=== PATIENT | male | born 1990 | race Caucasian/White ===

== ENCOUNTER 2017-01-19 05:54 | Emergency (ER) | payer OTHER ==
[2017-01-19] MEDS ORDERED: Sodium Chloride 0.9% 1,000 ML IV ONE (05:58)
[2017-01-19] MEDS ORDERED: Ondansetron 4 MG/2 ML SDV IVPUSH ONE (05:58)
--- NOTE | 2017-01-19 06:11 | EDM.PDOC ---
ED HPI GENERAL MEDICAL PROBLEM - General Chief Complaint: General Stated Complaint: VOMITING Time Seen by Provider: 01/19/17 06:15 - History of Present Illness INITIAL COMMENTS - FREE TEXT/NARRATIVE: HISTORY AND PHYSICAL: History of present illness: Patient Brittani phillips is a concern of intermittent nausea and vomiting since he states he had similar episodes over the last several months with some mild associated abdominal cramping denies diarrhea denies fever chills or other complaints Review of systems: As per history of present illness and below otherwise all systems reviewed and negative. Past medical history: As per history of present illness and as reviewed below otherwise noncontributory. Surgical history: As per history of present illness and as reviewed below otherwise noncontributory. Social history: No reported history of drug or alcohol abuse. Family history: As per history of present illness and as reviewed below otherwise noncontributory. Physical exam: HEENT: Atraumatic, normocephalic, pupils reactive, negative for conjunctival pallor or scleral icterus, mucous membranes slightly dry throat clear, neck supple, nontender, trachea midline. Lungs: Clear to auscultation, breath sounds equal bilaterally, chest nontender. Heart: S1S2, regular, negative for clicks, rubs, or JVD. Abdomen: Soft, nondistended, nontender. Negative for masses or hepatosplenomegaly. Negative for costovertebral tenderness. Pelvis: Stable nontender. Genitourinary: Deferred. Rectal: Deferred. Extremities: Atraumatic, negative for cords or calf pain. Neurovascular unremarkable. Neuro: Awake, alert, oriented. Cranial nerves II through XII unremarkable. Cerebellum unremarkable. Motor and sensory unremarkable throughout. Exam nonfocal. Diagnostics: CBC CMP lipase UA Therapeutics: Normal saline 1 L bolus Zofran 4 mg IV Impression: #1 vomiting with mild dehydration #2 intermittent abdominal pain Definitive disposition and diagnosis as appropriate pending reevaluation and review of above. - Related Data Allergies Allergy/AdvReac Type Severity Reaction Status Date / Time No Known Allergies Allergy Verified 01/19/17 05:57 Home Meds: Home Meds . [No Known Home Meds] 09/12/14 [History] Past Medical History - Past Health History Medical/Surgical History: Denies Medical/Surgical History HEENT History: Reports: None Cardiovascular History: Reports: None Respiratory History: Reports: None Genitourinary History: Reports: None Musculoskeletal History: Reports: None Neurological History: Reports: None Psychiatric History: Reports: None Endocrine/Metabolic History: Reports: None Hematologic History: Reports: None Immunologic History: Reports: None Oncologic (Cancer) History: Reports: None Dermatologic History: Reports: None - Infectious Disease History Infectious Disease History: Reports: Chicken pox - Past Surgical History Head Surgeries/Procedures: Reports: None GI Surgical History: Reports: Appendectomy, Hernia, inguinal, Lysis of adhesions Social & Family History - Family History Family Medical History: Noncontributory - Tobacco Use Smoking Status *Q: Never Smoker Years of Tobacco use: 1 Used Tobacco, but Quit: Yes Month Tobacco Last Used: May Second Hand Smoke Exposure: No - Caffeine Use Caffeine Use: Reports: Coffee Caffeine Use Comment: 1 daily - Alcohol Use Days Per Week of Alcohol Use: 2 Number of Drinks Per Day: 2 Total Drinks Per Week: 4 - Recreational Drug Use Recreational Drug Use: No Drug Use in Last 12 Months: No ED ROS GENERAL - Review of Systems Review Of Systems: ROS reveals no pertinent complaints other than HPI. ED EXAM, GENERAL - Physical Exam Exam: See Below (See dictation) Course - Vital Signs Last Recorded V/S: Last Vital Signs Temp 36.5 C 01/19/17 05:59 Pulse 115 H 01/19/17 05:59 Resp 16 01/19/17 05:59 BP 170/110 H 01/19/17 05:59 Pulse Ox 99 01/19/17 05:59 - Orders/Labs/Meds Orders: Active Orders 24 hr Category Date Time Status CMP [COMPREHENSIVE METABOLIC PN,CMP] [CHEM] Stat Lab 01/19/17 06:00 Received LIPASE [CHEM] Stat Lab 01/19/17 06:00 Received URINALYSIS W/MICROSCOPIC [UA W/MICROSCOPIC] [URIN] Stat Lab 01/19/17 05:58 Uncollected Sodium Chloride 0.9% [Normal Saline] 1,000 ml Med 01/19/17 05:58 Active IV .Bolus Medication Orders Sodium Chloride (Normal Saline) 1,000 mls @ 999 mls/hr IV .Bolus ONE Stop: 01/19/17 06:58 Last Admin: 01/19/17 06:05 Dose: 999 mls/hr Labs: Laboratory Tests 01/19/17 Range/Units 06:00 WBC 10.76 (4.0-11.0) K/uL RBC 5.84 (4.50-5.90) M/uL Hgb 18.2 H (13.0-17.0) g/dL Hct 51.1 H (38.0-50.0) % MCV 87.5 (80.0-98.0) fL MCH 31.2 (27.0-32.0) pg MCHC 35.6 (31.0-37.0) g/dL RDW Std Deviation 39.1 (28.0-62.0) fl RDW Coeff of Sindy 12 (11.0-15.0) % Plt Count 245 (150-400) K/uL MPV 9.40 (7.40-12.00) fL Neut % (Auto) 65.2 (48.0-80.0) % Lymph % (Auto) 25.5 (16.0-40.0) % [place] % (Auto) 9.0 (0.0-15.0) % Eos % (Auto) 0.1 (0.0-7.0) % Baso % (Auto) 0.2 (0.0-1.5) % Neut # 7.0 H (1.4-5.7) K/uL Lymph # 2.7 H (0.6-2.4) K/uL [place] # 1.0 H (0.0-0.8) K/uL Eos # 0.0 (0.0-0.7) K/uL Baso # 0.0 (0.0-0.1) K/uL Nucleated RBC % 0.0 /100WBC Nucleated RBCs # 0 K/uL Meds: Medications Generic Name Dose Route Start Last Admin Trade Name Freq PRN Reason Stop Dose Admin Sodium Chloride 1,000 mls @ 999 mls/hr 01/19/17 05:58 01/19/17 06:05 Normal Saline IV 01/19/17 06:58 999 mls/hr .Bolus ONE Administration Discontinued Medications Generic Name Dose Route Start Last Admin Trade Name Freq PRN Reason Stop Dose Admin Ondansetron HCl 4 mg 01/19/17 05:58 01/19/17 06:07 Zofran IVPUSH 01/19/17 05:59 4 mg ONETIME ONE Administration Departure - Departure Time of Disposition: 06:15 Disposition: Home, Self-Care 01 Condition: good Clinical Impression: Abdominal pain Vomiting Qualifiers: Vomiting type: unspecified Vomiting Intractability: non-intractable Nausea presence: with nausea Qualified Code(s): R11.2 - Nausea with vomiting, unspecified Forms: ED Department Discharge Additional Instructions: The following information is given to patients seen in the emergency department who are being discharged to home. This information is to outline your options for follow-up care. We provide all patients seen in our emergency department with a follow-up referral. The need for follow-up, as well as the timing and circumstances, are variable depending upon the specifics of your emergency department visit. If you don't have a primary care physician on staff, we will provide you with a referral. We always advise you to contact your personal physician following an emergency department visit to inform them of the circumstance of the visit and for follow-up with them and/or the need for any referrals to a consulting specialist. The emergency department will also refer you to a specialist when appropriate. This referral assures that you have the opportunity for followup care with a specialist. All of these measure are taken in an effort to provide you with optimal care, which includes your followup. Under all circumstances we always encourage you to contact your private physician who remains a resource for coordinating your care. When calling for followup care, please make the office aware that this follow-up is from your recent emergency room visit. If for any reason you are refused follow-up, please contact the [facility] emergency department at and asked to speak to the emergency department charge nurse. [facility] [address] [place] [id number] [facility] Specialty Care - General Surgery Professional Building [address] [place] [address], [address] [place] [address] Protonix Zofran as prescribed followup with clinic above call schedule routine appointment also with Gen. surgery return as needed as discussed - My Orders Last 24 Hours: My Active Orders 01/19/17 05:58 URINALYSIS W/MICROSCOPIC [UA W/MICROSCOPIC] [URIN] Stat Sodium Chloride 0.9% [Normal Saline] 1,000 ml IV .Bolus 01/19/17 06:00 CMP [COMPREHENSIVE METABOLIC PN,CMP] [CHEM] Stat LIPASE [CHEM] Stat - Assessment/Plan Last 24 Hours: My Active Orders 01/19/17 05:58 URINALYSIS W/MICROSCOPIC [UA W/MICROSCOPIC] [URIN] Stat Sodium Chloride 0.9% [Normal Saline] 1,000 ml IV .Bolus 01/19/17 06:00 CMP [COMPREHENSIVE METABOLIC PN,CMP] [CHEM] Stat LIPASE [CHEM] Stat
[2017-01-19 06:39] LABS: CHLORIDE,CL 100 mmol/L (98-110); SODIUM,NA 141 mmol/L (136-146)
[2017-01-19 07:01] VITALS: BP 155/97
== END 2017-01-19 07:05 | disposition home or self-care (01) ==
LOC: MW.ED 05:54
DX: E86.0 Dehydration (principal); R10.9 Unspecified abdominal pain; Z90.49 Acquired absence of other specified parts of digestive tract
CPT/HCPCS: 80053; 83690; 85025; 96365; 96375; 99285; J2405; J7040; 99284

== ENCOUNTER 2017-10-21 05:26 | Emergency (ER) | payer OTHER ==
[2017-10-21 05:39] VITALS: BP 139/86
[2017-10-21] MEDS ORDERED: LORazepam 1 MG Tab PO ONE (05:51)
--- NOTE | 2017-10-21 05:57 | EDM.PDOC ---
ED HPI GENERAL MEDICAL PROBLEM - General Chief Complaint: Behavioral/Psych Stated Complaint: NERVOUS ATTACKS Time Seen by Provider: 10/21/17 05:40 - History of Present Illness INITIAL COMMENTS - FREE TEXT/NARRATIVE: HISTORY AND PHYSICAL: History of present illness: The patient is a healthy 27 y/o male who presents with complaints of wakefulness the last several nights where in he will have trouble going to sleep and then when he goes to sleep he wakes up multiple times for the night feeling panicky and anxious. The patient does not drink an excessive amount of caffeinated products and does not do any drugs. The patient says he has a history Other issues with sleeping in the past when he was a teenager and into as low 20s and he would take clonazepam and other medications but he has not taken those in many years. He does not have any suicidal or homicidal ideation is not depressed and in fact has been stable in his work environment and says he has no stressors in his personal or work life . He says when he wakes he just feels very agitated and is not really sure what is upsetting him. The patient has tried [id number] Benadryl as well as low-dose melatonin to try to help go to sleep and no work for a while but then he will wake with the symptoms. He has not tried to connect with clinic physician or with any other outpatient resources for counseling. Patient states he is just very tired and would like to get some rest and has a day off today from work Review of systems: As per history of present illness and below otherwise all systems reviewed and negative. Past medical history: As per history of present illness and as reviewed below otherwise noncontributory. Surgical history: As per history of present illness and as reviewed below otherwise noncontributory. Social history: No reported history of drug or alcohol abuse. Family history: As per history of present illness and as reviewed below otherwise noncontributory. Physical exam: Gen.: Well-developed well-nourished man who is nontoxic and speaking clearly and easily in the ED. Vital signs of been noted by me HEENT: Atraumatic, normocephalic, pupils reactive, negative for conjunctival pallor or scleral icterus, mucous membranes moist, throat clear, neck supple, nontender, trachea midline. Lungs: Clear to auscultation, breath sounds equal bilaterally, chest nontender. Heart: S1S2, regular rate and rhythm no overt murmurs Abdomen: Soft, nondistended, nontender. NABS Pelvis: Deferred. Genitourinary: Deferred. Rectal: Deferred. Extremities: Atraumatic, negative for cords or calf pain. Neurovascular unremarkable. Neuro: Awake, alert, oriented. Cranial nerves II through XII unremarkable. Cerebellum unremarkable. Motor and sensory unremarkable throughout. Exam nonfocal. Psych: The patient is interactive and cooperative in the ED and has a normal effect and is not exhibiting signs of depression or anxiety in evaluation. He does seem somewhat frustrated with what is occurring with him and he says he feels just very tired and is asking for some help both the short and long-term basis. Diagnostics: [] Therapeutics: Ativan by mouth We talked about the need to start some counseling as there is obviously something that is stressing him enough to wake him from sleep that is just started recently and discussing deeper issues but his personal and work life may help reveal what the source of this problem is. I will give him resources for outpatient connection and reasons to return to the ED Impression: Nocturnal wakefulness and anxiety stable Definitive disposition and diagnosis as appropriate pending reevaluation and review of above. - Related Data Allergies Allergy/AdvReac Type Severity Reaction Status Date / Time No Known Allergies Allergy Verified 10/21/17 05:39 Home Meds: Home Meds . [No Known Home Meds] 09/12/14 [History] Past Medical History - Past Health History Medical/Surgical History: Denies Medical/Surgical History HEENT History: Reports: None Cardiovascular History: Reports: None Respiratory History: Reports: None Genitourinary History: Reports: None Musculoskeletal History: Reports: None Neurological History: Reports: None Psychiatric History: Reports: None Endocrine/Metabolic History: Reports: None Hematologic History: Reports: None Immunologic History: Reports: None Oncologic (Cancer) History: Reports: None Dermatologic History: Reports: None - Infectious Disease History Infectious Disease History: Reports: Chicken Pox - Past Surgical History Head Surgeries/Procedures: Reports: None GI Surgical History: Reports: Appendectomy, Hernia, Inguinal, Lysis of Adhesions Social & Family History - Family History Family Medical History: Noncontributory - Tobacco Use Smoking Status *Q: Current Every Day Smoker Years of Tobacco use: 3 Packs/Tins Daily: 0.2 Used Tobacco, but Quit: Yes Month Tobacco Last Used: May Second Hand Smoke Exposure: No - Caffeine Use Caffeine Use: Reports: None Caffeine Use Comment: 1 daily - Alcohol Use Days Per Week of Alcohol Use: 2 Number of Drinks Per Day: 2 Total Drinks Per Week: 4 - Recreational Drug Use Recreational Drug Use: No Drug Use in Last 12 Months: No ED ROS GENERAL - Review of Systems Review Of Systems: ROS reveals no pertinent complaints other than HPI. ED EXAM, GENERAL - Physical Exam Exam: See Below (See dictation) Course - Vital Signs Last Recorded V/S: Last Vital Signs Temp 36.3 C 10/21/17 05:36 Pulse 84 10/21/17 05:36 Resp 12 10/21/17 05:36 BP 139/86 10/21/17 05:36 Pulse Ox 97 10/21/17 05:36 - Orders/Labs/Meds Orders: Active Orders 24 hr Category Date Time Status LORazepam [Ativan] Med 10/21/17 05:51 Once 2 mg PO ONETIME ONE Departure - Departure Time of Disposition: 05:56 Disposition: Home, Self-Care 01 Condition: Good Clinical Impression: Wakefulness, Anxiety - Discharge Information Referrals: PCP,None [Primary Care Provider] - Additional Instructions: The following information is given to patients seen in the emergency department who are being discharged to home. This information is to outline your options for follow-up care. We provide all patients seen in our emergency department with a follow-up referral. The need for follow-up, as well as the timing and circumstances, are variable depending upon the specifics of your emergency department visit. If you don't have a primary care physician on staff, we will provide you with a referral. We always advise you to contact your personal physician following an emergency department visit to inform them of the circumstance of the visit and for follow-up with them and/or the need for any referrals to a consulting specialist. The emergency department will also refer you to a specialist when appropriate. This referral assures that you have the opportunity for followup care with a specialist. All of these measure are taken in an effort to provide you with optimal care, which includes your followup. Under all circumstances we always encourage you to contact your private physician who remains a resource for coordinating your care. When calling for followup care, please make the office aware that this follow-up is from your recent emergency room visit. If for any reason you are refused follow-up, please contact the [facility] emergency department at and ask to speak to the emergency department charge nurse. [facility] Primary care- Internal Medicine and Family [address] [address] Please call her clinic to connect with her primary care health worker for future medical care and needs. Please also use resources given to today by nursing to connect with outpatient counseling resources that are available in the area. Please try to take melatonin as we discussed and reduce screen time before sleep times. Reduce or eliminate any caffeine use. Push hydration and return to ER as needed and as discussed - My Orders Last 24 Hours: My Active Orders 10/21/17 05:51 LORazepam [Ativan] 2 mg PO ONETIME ONE - Assessment/Plan Last 24 Hours: My Active Orders 10/21/17 05:51 LORazepam [Ativan] 2 mg PO ONETIME ONE
== END 2017-10-21 06:08 | disposition home or self-care (01) ==
LOC: MW.ED 05:26
DX: G47.8 Other sleep disorders (principal); F41.9 Anxiety disorder, unspecified; F17.210 Nicotine dependence, cigarettes, uncomplicated
CPT/HCPCS: 99283; A9270

== ENCOUNTER 2019-05-11 09:11 | Emergency (ER) | payer BC, OTHER ==
[2019-05-11] MEDS ORDERED: Ondansetron 4 MG/2 ML SDV IVPUSH ONE (10:15)
[2019-05-11] MEDS ORDERED: Sodium Chloride 0.9% 1,000 ML IV ONE (10:15)
--- NOTE | 2019-05-11 10:25 | EDM.PDOC ---
<Vviiana Vang - Last Filed: 05/11/19 10:41> ED HPI GENERAL MEDICAL PROBLEM - General Chief Complaint: Gastrointestinal Problem Stated Complaint: NOT FEELING WELL Time Seen by Provider: 05/11/19 10:20 - History of Present Illness INITIAL COMMENTS - FREE TEXT/NARRATIVE: This is Dr. Vang dictating addendum note as I am the supervising physician on this case. Patient has been seen by me and I reviewed the above note. I agree with the findings and the patient tells me his pain is mostly around his bellybutton and has had no diarrhea. He seems very exaggerated on my evaluation saying that he is keeps having hot flashes and feels lightheaded as the IV is being started. He says he has no lower abdominal pain and he has a history of an appendectomy. Has no history of food intolerance. On my exam he has no significant abdominal tenderness and does not look toxic. We will continue to monitor her workup as stated in the resident note and disposition the patient pending those results and his response to intervention. - Related Data Allergies Allergy/AdvReac Type Severity Reaction Status Date / Time No Known Allergies Allergy Verified 05/11/19 09:59 Home Meds: Home Meds Ondansetron [Zofran ODT] 4 mg PO Q6H PRN #20 tab.dis 05/11/19 [Rx] ED ROS GENERAL - Review of Systems Review Of Systems: ROS reveals no pertinent complaints other than HPI. ED EXAM, GI/ABD - Physical Exam Exam: See Below (See dictation) Course - Vital Signs Last Recorded V/S: Last Vital Signs Temp 35.9 C 05/11/19 09:59 Pulse 85 05/11/19 09:59 Resp 18 05/11/19 09:59 BP 137/94 H 05/11/19 09:59 Pulse Ox 99 05/11/19 09:59 - Orders/Labs/Meds Labs: Laboratory Tests 05/11/19 05/11/19 Range/Units 10:24 10:24 WBC 11.92 H (4.0-11.0) K/uL RBC 5.52 (4.50-5.90) M/uL Hgb 16.4 (13.0-17.0) g/dL Hct 47.6 (38.0-50.0) % MCV 86.2 (80.0-98.0) fL MCH 29.7 (27.0-32.0) pg MCHC 34.5 (31.0-37.0) g/dL RDW Std Deviation 40.1 (28.0-62.0) fl RDW Coeff of Sindy 13 (11.0-15.0) % Plt Count 258 (150-400) K/uL MPV 9.50 (7.40-12.00) fL Neut % (Auto) 81.3 H (48.0-80.0) % Lymph % (Auto) 14.6 L (16.0-40.0) % [place] % (Auto) 3.9 (0.0-15.0) % Eos % (Auto) 0.0 (0.0-7.0) % Baso % (Auto) 0.2 (0.0-1.5) % Neut # (Auto) 9.7 H (1.4-5.7) K/uL Lymph # (Auto) 1.7 (0.6-2.4) K/uL [place] # (Auto) 0.5 (0.0-0.8) K/uL Eos # (Auto) 0.0 (0.0-0.7) K/uL Baso # (Auto) 0.0 (0.0-0.1) K/uL Nucleated RBC % 0.0 /100WBC Nucleated RBCs # 0 K/uL Sodium 141 (136-148) mmol/L Potassium 4.0 (3.5-5.1) mmol/L Chloride 103 (98-107) mmol/L Carbon Dioxide 24.1 (21.0-32.0) mmol/L BUN 14 (7.0-18.0) mg/dL Creatinine 1.2 (0.8-1.3) mg/dL Est Cr Clr Drug Dosing 88.67 mL/min Estimated GFR (MDRD) > 60.0 ml/min Glucose 122 H (74-106) mg/dL Calcium 8.5 (8.5-10.1) mg/dL Total Bilirubin 0.4 (0.2-1.0) mg/dL AST 31 (15-37) IU/L ALT 34 (14-63) IU/L Alkaline Phosphatase 84 (46-116) U/L Total Protein 8.3 H (6.4-8.2) g/dL Albumin 4.5 (3.4-5.0) g/dL Globulin 3.8 (2.6-4.0) g/dL Albumin/Globulin Ratio 1.2 (0.9-1.6) Lipase 63 L (73-393) U/L Ethyl Alcohol 6 mg/dL Meds: Medications Discontinued Medications Generic Name Dose Route Start Last Admin Trade Name Freq PRN Reason Stop Dose Admin Sodium Chloride 1,000 mls @ 999 mls/hr 05/11/19 10:15 05/11/19 10:21 Normal Saline IV 05/11/19 11:15 999 mls/hr STAT ONE Administration Ondansetron HCl 4 mg 05/11/19 10:15 05/11/19 10:21 Zofran IVPUSH 05/11/19 10:16 4 mg ONETIME ONE Administration Departure - Departure Disposition: Home, Self-Care 01 Clinical Impression: Nausea & vomiting Qualifiers: Vomiting type: unspecified Vomiting Intractability: non-intractable Qualified Code(s): R11.2 - Nausea with vomiting, unspecified - Discharge Information Prescriptions: Ondansetron [Zofran ODT] 4 mg PO Q6H PRN #20 tab.dis PRN Reason: Nausea Instructions: Abdominal Pain, Adult, [id number], Nausea and Vomiting, Adult Referrals: PCP,None [Primary Care Provider] - Forms: ED Department Discharge <Jose Luis Stearns - Last Filed: 05/11/19 11:17> ED HPI GENERAL MEDICAL PROBLEM - History of Present Illness INITIAL COMMENTS - FREE TEXT/NARRATIVE: 29 y/o male here for nausea, vomiting since this morning. States that a bug has been going around work but he didn't worry about it until this morning. No abdominal pain, chest pain, dyspnea, dysuria, diarrhea. States he occasionally drinks alcohol. Last drink was on Friday drinking 2-3 beers. States he has acid reflux taking PPI. States it's under control. No illicit drug use. Room mate denies any symptoms. umbillicus Pain Score (Numeric/FACES): 1 Past Medical History - Past Health History Medical/Surgical History: Denies Medical/Surgical History HEENT History: Reports: None Cardiovascular History: Reports: None Respiratory History: Reports: None Gastrointestinal History: Reports: None Genitourinary History: Reports: None Musculoskeletal History: Reports: None Neurological History: Reports: None Psychiatric History: Reports: None Endocrine/Metabolic History: Reports: None Hematologic History: Reports: None Immunologic History: Reports: None Oncologic (Cancer) History: Reports: None Dermatologic History: Reports: None - Infectious Disease History Infectious Disease History: Reports: Chicken Pox - Past Surgical History Head Surgeries/Procedures: Reports: None HEENT Surgical History: Reports: None Cardiovascular Surgical History: Reports: None Respiratory Surgical History: Reports: None GI Surgical History: Reports: Appendectomy, Hernia, Inguinal, Lysis of Adhesions Male Surgical History: Reports: None Endocrine Surgical History: Reports: None Neurological Surgical History: Reports: None Musculoskeletal Surgical History: Reports: None Oncologic Surgical History: Reports: None Dermatological Surgical History: Reports: None Social & Family History - Family History Family Medical History: Noncontributory - Tobacco Use Smoking Status *Q: Never Smoker Second Hand Smoke Exposure: No - Caffeine Use Caffeine Use: Reports: Coffee, Energy Drinks, Soda, Tea Caffeine Use Comment: 1 daily - Recreational Drug Use Recreational Drug Use: No ED ROS GENERAL - Review of Systems Review Of Systems: ROS reveals no pertinent complaints other than HPI. ED EXAM, GI/ABD - Physical Exam Exam: See Below General Appearance: Alert, WD/WN, No Apparent Distress Throat/Mouth: Other (dry mucous membranes) Respiratory/Chest: No Respiratory Distress, Lungs Clear, Normal Breath Sounds Cardiovascular: Normal Peripheral Pulses, Regular Rate, Rhythm, No Edema GI/Abdominal Exam: Soft, Non-Tender, Other (faint bowel sounds, no rebound.) Extremities: Normal Inspection, No Pedal Edema Neurological: Alert, Oriented Skin Exam: Warm, Dry Course - Orders/Labs/Meds Labs: Laboratory Tests 05/11/19 05/11/19 Range/Units 10:24 10:24 WBC 11.92 H (4.0-11.0) K/uL RBC 5.52 (4.50-5.90) M/uL Hgb 16.4 (13.0-17.0) g/dL Hct 47.6 (38.0-50.0) % MCV 86.2 (80.0-98.0) fL MCH 29.7 (27.0-32.0) pg MCHC 34.5 (31.0-37.0) g/dL RDW Std Deviation 40.1 (28.0-62.0) fl RDW Coeff of Sindy 13 (11.0-15.0) % Plt Count 258 (150-400) K/uL MPV 9.50 (7.40-12.00) fL Neut % (Auto) 81.3 H (48.0-80.0) % Lymph % (Auto) 14.6 L (16.0-40.0) % [place] % (Auto) 3.9 (0.0-15.0) % Eos % (Auto) 0.0 (0.0-7.0) % Baso % (Auto) 0.2 (0.0-1.5) % Neut # (Auto) 9.7 H (1.4-5.7) K/uL Lymph # (Auto) 1.7 (0.6-2.4) K/uL [place] # (Auto) 0.5 (0.0-0.8) K/uL Eos # (Auto) 0.0 (0.0-0.7) K/uL Baso # (Auto) 0.0 (0.0-0.1) K/uL Nucleated RBC % 0.0 /100WBC Nucleated RBCs # 0 K/uL Sodium 141 (136-148) mmol/L Potassium 4.0 (3.5-5.1) mmol/L Chloride 103 (98-107) mmol/L Carbon Dioxide 24.1 (21.0-32.0) mmol/L BUN 14 (7.0-18.0) mg/dL Creatinine 1.2 (0.8-1.3) mg/dL Est Cr Clr Drug Dosing 88.67 mL/min Estimated GFR (MDRD) > 60.0 ml/min Glucose 122 H (74-106) mg/dL Calcium 8.5 (8.5-10.1) mg/dL Total Bilirubin 0.4 (0.2-1.0) mg/dL AST 31 (15-37) IU/L ALT 34 (14-63) IU/L Alkaline Phosphatase 84 (46-116) U/L Total Protein 8.3 H (6.4-8.2) g/dL Albumin 4.5 (3.4-5.0) g/dL Globulin 3.8 (2.6-4.0) g/dL Albumin/Globulin Ratio 1.2 (0.9-1.6) Lipase 63 L (73-393) U/L Ethyl Alcohol 6 mg/dL Departure - Departure Time of Disposition: 11:15 Condition: Good - Discharge Information *PRESCRIPTION DRUG MONITORING PROGRAM REVIEWED*: Not Applicable *COPY OF PRESCRIPTION DRUG MONITORING REPORT IN PATIENT JEVON: Not Applicable
--- NOTE | 2019-05-11 10:50 | CR ---
EXAMINATION: Abdomen HISTORY: Pain COMPARISON: CT dated 11/11/2018 TECHNIQUE: Upright views of the abdomen FINDINGS: There is no free air under the diaphragm. There is a nonobstructive bowel gas pattern. No organomegaly or abnormal calcifications. Visualized osseous structures appear normal. IMPRESSION: Unremarkable abdominal films.
[2019-05-11 11:04] LABS: CHLORIDE,CL 103 mmol/L (98-107); SODIUM,NA 141 mmol/L (136-148)
[2019-05-11 12:47] VITALS: BP 136/84
== END 2019-05-11 11:44 | disposition home or self-care (01) ==
LOC: MW.ED 09:11
DX: R11.2 Nausea with vomiting, unspecified (principal); Z90.49 Acquired absence of other specified parts of digestive tract
CPT/HCPCS: 36415; 74018; 80053; 83690; 85025; 96361; 96374; 99283; G0480; J2405; J7040

== ENCOUNTER 2019-08-31 07:50 | Emergency (ER) | payer BC, OTHER ==
[2019-08-31 08:01] VITALS: BP 142/97; PULSE 76
[2019-08-31] MEDS ORDERED: Sodium Chloride 0.9% 1,000 ML IV ONE (08:11)
[2019-08-31] MEDS ORDERED: Ondansetron 4 MG/2 ML SDV IVPUSH ONE (08:11)
--- NOTE | 2019-08-31 08:11 | EDM.PDOC ---
ED HPI GENERAL MEDICAL PROBLEM - General Chief Complaint: General Stated Complaint: FLU-LIKE SYMPTOMS, VOMITING Time Seen by Provider: 08/31/19 08:00 Source of Information: Reports: Patient History Limitations: Reports: No Limitations - History of Present Illness INITIAL COMMENTS - FREE TEXT/NARRATIVE: HISTORY AND PHYSICAL: History of present illness: Patient is a 29-year-old male who presents to the emergency room today with complaints of nausea, vomiting and generally feeling unwell. He states at work there have been multiple coworkers who have all been sick and he feels that it has just "been going around" over the past few days. He states yesterday he had generalized body aches and a subjective fever. He had felt nauseated and had a few bouts of vomiting after attempting to eat or drink. Today he attempted to go to work but felt he was too unwell and decided to come to the emergency room. Patient denies any chills, headache, change in vision, syncope or near syncope. Denies any chest pain, back pain, shortness of breath or cough. Denies any abdominal pain, diarrhea, constipation or dysuria. Has not noted any blood in urine or stool. Review of systems: As per history of present illness and below otherwise all systems reviewed and negative. Past medical history: As per history of present illness and as reviewed below otherwise noncontributory. Surgical history: As per history of present illness and as reviewed below otherwise noncontributory. Social history: See social history for further information Family history: As per history of present illness and as reviewed below otherwise noncontributory. Physical exam: General: Well-developed and well-nourished 29-year-old male. Alert and oriented. Nontoxic appearing and in no acute distress. HEENT: Atraumatic, normocephalic, pupils equal and reactive bilaterally, negative for conjunctival pallor or scleral icterus, mucous membranes moist, TMs normal bilaterally, throat clear, neck supple, nontender, trachea midline. No drooling or trismus noted. No meningeal signs. No hot potato voice noted. Lungs: Clear to auscultation, breath sounds equal bilaterally, chest nontender. Heart: S1S2, regular rate and rhythm without overt murmur Abdomen: Soft, nondistended, nontender. Negative for masses or hepatosplenomegaly. Negative for costovertebral tenderness. Pelvis: Stable nontender. Skin: Intact, warm, dry. No lesions or rashes noted. Extremities: Atraumatic, moves all extremities per self without difficulty or deficits, negative for cords or calf pain. Neurovascular unremarkable. Neuro: Awake, alert, oriented. Cranial nerves II through XII unremarkable. Cerebellum unremarkable. Motor and sensory unremarkable throughout. Exam nonfocal. Notes: Physical examination is within normal limits. Lab work is unremarkable. A PO challenge was successful. Supportive care measures were reviewed and discussed. Voices understanding and is agreeable to plan of care. Denies any further questions or concerns at this time. Diagnostics: CBC, BMP, Influenza Therapeutics: IV fluids, Zofran Prescription: Zofran (#6) Impression: Viral Illness Encounter for medical screening examination Plan: 1. Please use Tylenol and/or Ibuprofen as needed for pain and fever management. 2. Get plenty of Rest. Encourage fluids to prevent dehydration. Use the Zofran as needed and as directed for nausea. 3. Please follow up with your primary care provider. Return to the ED as needed as discussed. Definitive disposition and diagnosis as appropriate pending reevaluation and review of above. - Related Data Allergies Allergy/AdvReac Type Severity Reaction Status Date / Time No Known Allergies Allergy Verified 08/31/19 08:01 Home Meds: Home Meds Ondansetron [Zofran ODT] 4 mg PO Q6H PRN #8 tab.dis 08/31/19 [Rx] PARoxetine [Paxil] 10 mg PO DAILY 08/31/19 [History] busPIRone [Buspar] 10 mg PO DAILY 08/31/19 [History] Past Medical History - Past Health History Medical/Surgical History: Denies Medical/Surgical History HEENT History: Reports: None Cardiovascular History: Reports: None Respiratory History: Reports: None Gastrointestinal History: Reports: None Genitourinary History: Reports: None Musculoskeletal History: Reports: None Neurological History: Reports: None Psychiatric History: Reports: None Endocrine/Metabolic History: Reports: None Hematologic History: Reports: None Immunologic History: Reports: None Oncologic (Cancer) History: Reports: None Dermatologic History: Reports: None - Infectious Disease History Infectious Disease History: Reports: Chicken Pox - Past Surgical History Head Surgeries/Procedures: Reports: None HEENT Surgical History: Reports: None Cardiovascular Surgical History: Reports: None Respiratory Surgical History: Reports: None GI Surgical History: Reports: Appendectomy, Hernia, Inguinal, Lysis of Adhesions Male Surgical History: Reports: None Endocrine Surgical History: Reports: None Neurological Surgical History: Reports: None Musculoskeletal Surgical History: Reports: None Oncologic Surgical History: Reports: None Dermatological Surgical History: Reports: None Social & Family History - Family History Family Medical History: Noncontributory - Tobacco Use Smoking Status *Q: Current Some Day Smoker Years of Tobacco use: 6 Packs/Tins Daily: 0.1 - Caffeine Use Caffeine Use: Reports: Energy Drinks Caffeine Use Comment: 1 daily - Recreational Drug Use Recreational Drug Use: No ED ROS GENERAL - Review of Systems Review Of Systems: ROS reveals no pertinent complaints other than HPI. ED EXAM, GENERAL - Physical Exam Exam: See Below (See dictation) Course - Vital Signs Last Recorded V/S: Last Vital Signs Temp 97.4 F 08/31/19 07:59 Pulse 76 08/31/19 07:59 Resp 18 08/31/19 07:59 BP 142/97 H 08/31/19 07:59 Pulse Ox 98 08/31/19 07:59 - Orders/Labs/Meds Orders: Active Orders 24 hr Category Date Time Status Sodium Chloride 0.9% [Normal Saline] 1,000 ml Med 08/31/19 08:11 Active IV STAT Medication Orders Sodium Chloride (Normal Saline) 1,000 mls @ 999 mls/hr IV STAT ONE Stop: 08/31/19 09:11 Last Admin: 08/31/19 08:29 Dose: 999 mls/hr Labs: Laboratory Tests 08/31/19 08/31/19 Range/Units 08:27 08:27 WBC 6.66 (4.0-11.0) K/uL RBC 5.25 (4.50-5.90) M/uL Hgb 15.9 (13.0-17.0) g/dL Hct 45.8 (38.0-50.0) % MCV 87.2 (80.0-98.0) fL MCH 30.3 (27.0-32.0) pg MCHC 34.7 (31.0-37.0) g/dL RDW Std Deviation 39.6 (28.0-62.0) fl RDW Coeff of Sindy 12 (11.0-15.0) % Plt Count 234 (150-400) K/uL MPV 9.20 (7.40-12.00) fL Neut % (Auto) 67.7 (48.0-80.0) % Lymph % (Auto) 26.9 (16.0-40.0) % [place] % (Auto) 4.8 (0.0-15.0) % Eos % (Auto) 0.3 (0.0-7.0) % Baso % (Auto) 0.3 (0.0-1.5) % Neut # (Auto) 4.5 (1.4-5.7) K/uL Lymph # (Auto) 1.8 (0.6-2.4) K/uL [place] # (Auto) 0.3 (0.0-0.8) K/uL Eos # (Auto) 0.0 (0.0-0.7) K/uL Baso # (Auto) 0.0 (0.0-0.1) K/uL Nucleated RBC % 0.0 /100WBC Nucleated RBCs # 0 K/uL Sodium 142 (136-148) mmol/L Potassium 3.7 (3.5-5.1) mmol/L Chloride 102 (98-107) mmol/L Carbon Dioxide 26.9 (21.0-32.0) mmol/L BUN 15 (7.0-18.0) mg/dL Creatinine 1.2 (0.8-1.3) mg/dL Est Cr Clr Drug Dosing 91.65 mL/min Estimated GFR (MDRD) > 60.0 ml/min Glucose 113 H (74-106) mg/dL Calcium 8.4 L (8.5-10.1) mg/dL Meds: Medications Generic Name Dose Route Start Last Admin Trade Name Freq PRN Reason Stop Dose Admin Sodium Chloride 1,000 mls @ 999 mls/hr 08/31/19 08:11 08/31/19 08:29 Normal Saline IV 08/31/19 09:11 999 mls/hr STAT ONE Administration Discontinued Medications Generic Name Dose Route Start Last Admin Trade Name Freq PRN Reason Stop Dose Admin Ondansetron HCl 4 mg 08/31/19 08:11 08/31/19 08:29 Zofran IVPUSH 08/31/19 08:12 4 mg ONETIME ONE Administration Departure - Departure Time of Disposition: 08:56 Disposition: Home, Self-Care 01 Clinical Impression: Encounter for medical screening examination, Viral illness - Discharge Information Prescriptions: Ondansetron [Zofran ODT] 4 mg PO Q6H PRN #8 tab.dis PRN Reason: Nausea Instructions: Viral Illness, Adult Referrals: PCP,None [Primary Care Provider] - Forms: ED Department Discharge Additional Instructions: The following information is given to patients seen in the emergency department who are being discharged to home. This information is to outline your options for follow-up care. We provide all patients seen in our emergency department with a follow-up referral. The need for follow-up, as well as the timing and circumstances, are variable depending upon the specifics of your emergency department visit. If you don't have a primary care physician on staff, we will provide you with a referral. We always advise you to contact your personal physician following an emergency department visit to inform them of the circumstance of the visit and for follow-up with them and/or the need for any referrals to a consulting specialist. The emergency department will also refer you to a specialist when appropriate. This referral assures that you have the opportunity for follow-up care with a specialist. All of these measure are taken in an effort to provide you with optimal care, which includes your follow-up. Under all circumstances we always encourage you to contact your private physician who remains a resource for coordinating your care. When calling for follow-up care, please make the office aware that this follow-up is from your recent emergency room visit. If for any reason you are refused follow-up, please contact the [facility] Emergency Department at and asked to speak to the emergency department charge nurse. [facility] [address] [place] [id number] [id number] 1. Please use Tylenol and/or Ibuprofen as needed for pain and fever management. 2. Get plenty of Rest. Encourage fluids to prevent dehydration. Use the Zofran as needed and as directed for nausea. 3. Please follow up with your primary care provider. Return to the ED as needed as discussed. - My Orders Last 24 Hours: My Active Orders 08/31/19 08:11 Sodium Chloride 0.9% [Normal Saline] 1,000 ml IV STAT - Assessment/Plan Last 24 Hours: My Active Orders 08/31/19 08:11 Sodium Chloride 0.9% [Normal Saline] 1,000 ml IV STAT
[2019-08-31 08:53] LABS: BLOOD UREA NITROGEN,BUN 15 mg/dL (7.0-18.0); CARBON DIOXIDE,CO2 26.9 mmol/L (21.0-32.0); CHLORIDE,CL 102 mmol/L (98-107); GLUCOSE RANDOM 113 mg/dL (74-106); POTASSIUM,K 3.7 mmol/L (3.5-5.1); SODIUM,NA 142 mmol/L (136-148)
== END 2019-08-31 09:15 | disposition home or self-care (01) ==
LOC: MW.ED 07:50
DX: Z13.9 Encounter for screening, unspecified (principal); B34.9 Viral infection, unspecified; F17.210 Nicotine dependence, cigarettes, uncomplicated
CPT/HCPCS: 36415; 80048; 85025; 87804; 96361; 96374; 99283; J2405; J7040

== ENCOUNTER 2019-08-31 13:04 | Emergency (ER) | payer OTHER ==
[2019-08-31 13:19] VITALS: BP 160/101; PULSE 81
[2019-08-31] MEDS ORDERED: Sodium Chloride 0.9% 2.5 ML Syringe FLUSH PRN (13:28)
[2019-08-31] MEDS ORDERED: Sodium Chloride 0.9% 1,000 ML IV ONE (13:28)
[2019-08-31] MEDS ORDERED: Sodium Chloride 0.9% 10 ML Syringe FLUSH PRN (13:28)
--- NOTE | 2019-08-31 13:28 | EDM.PDOC ---
ED HPI GENERAL MEDICAL PROBLEM - General Chief Complaint: Abdominal Pain Stated Complaint: VOMIT CRAMP Time Seen by Provider: 08/31/19 13:21 Source of Information: Reports: Patient, Old Records History Limitations: Reports: No Limitations - History of Present Illness INITIAL COMMENTS - FREE TEXT/NARRATIVE: HISTORY AND PHYSICAL: History of present illness: Patient is a 29-year-old male presents to the ED with complaint of vomiting and muscle cramping. Patient was seen in the ED this morning with for vomiting x 2 days. Labs unremarkable, he was given IV fluids and prescription for zofran. He states he was initially feeling better but after a while at home he had more vomiting that had blood mixed in and some muscle cramping. He states this really concerned him so he returned to the ED. He states the zofran is not helping. He denies diarrhea, hematochezia, or melena. He states he has not urinated in a couple of days. Review of systems: As per history of present illness and below otherwise all systems reviewed and negative. Past medical history: As per history of present illness and as reviewed below otherwise noncontributory. Surgical history: As per history of present illness and as reviewed below otherwise noncontributory. Social history: No reported history of drug or alcohol abuse. Family history: As per history of present illness and as reviewed below otherwise noncontributory. Physical exam: General: Patient sitting comfortably in no acute distress and nontoxic appearing HEENT: Atraumatic, normocephalic, pupils reactive, negative for conjunctival pallor or scleral icterus, mucous membranes moist, throat clear, neck supple, nontender, trachea midline. No meningeal signs. Lungs: Clear to auscultation, breath sounds equal bilaterally, chest nontender. Heart: S1S2, regular, negative for clicks, rubs, or overt murmur. Abdomen: Soft, nondistended, nontender. Negative for masses or hepatosplenomegaly. Negative for costovertebral tenderness. No rigidity, rebound , guarding. Pelvis: Stable nontender. Genitourinary: Deferred. Rectal: Deferred. Extremities: Atraumatic, negative for cords or calf pain. Neurovascular unremarkable. Neuro: Awake, alert, oriented. Cranial nerves II through XII unremarkable. Cerebellum unremarkable. Motor and sensory unremarkable throughout. Exam nonfocal. Notes: Diagnostics: CMP, magnesium, CK Therapeutics: 1L NS IV 10mg Reglan IV Prescriptions: Impression: Vomiting, muscle spams Plan: Patient left AMA prior to receiving lab results Definitive disposition and diagnosis as appropriate pending reevaluation and review of above. Abdominal Pain Score (Numeric/FACES): 1 - Related Data Allergies Allergy/AdvReac Type Severity Reaction Status Date / Time No Known Allergies Allergy Verified 08/31/19 13:11 Home Meds: Home Meds Ondansetron [Zofran ODT] 4 mg PO Q6H PRN #8 tab.dis 08/31/19 [Rx] PARoxetine [Paxil] 10 mg PO DAILY 08/31/19 [History] busPIRone [Buspar] 10 mg PO DAILY 08/31/19 [History] Past Medical History - Past Health History Medical/Surgical History: Denies Medical/Surgical History HEENT History: Reports: None Cardiovascular History: Reports: None Respiratory History: Reports: None Gastrointestinal History: Reports: None Genitourinary History: Reports: None Musculoskeletal History: Reports: None Neurological History: Reports: None Psychiatric History: Reports: None Endocrine/Metabolic History: Reports: None Hematologic History: Reports: None Immunologic History: Reports: None Oncologic (Cancer) History: Reports: None Dermatologic History: Reports: None - Infectious Disease History Infectious Disease History: Reports: Chicken Pox - Past Surgical History Head Surgeries/Procedures: Reports: None HEENT Surgical History: Reports: None Cardiovascular Surgical History: Reports: None Respiratory Surgical History: Reports: None GI Surgical History: Reports: Appendectomy, Hernia, Inguinal, Lysis of Adhesions Male Surgical History: Reports: None Endocrine Surgical History: Reports: None Neurological Surgical History: Reports: None Musculoskeletal Surgical History: Reports: None Oncologic Surgical History: Reports: None Dermatological Surgical History: Reports: None Social & Family History - Family History Family Medical History: Noncontributory - Tobacco Use Smoking Status *Q: Never Smoker - Caffeine Use Caffeine Use: Reports: Coffee, Energy Drinks, Soda, Tea Caffeine Use Comment: 1 daily - Recreational Drug Use Recreational Drug Use: No ED ROS GENERAL - Review of Systems Review Of Systems: ROS reveals no pertinent complaints other than HPI. ED EXAM, GI/ABD - Physical Exam Exam: See Below (see dictation) Course - Vital Signs Last Recorded V/S: Last Vital Signs Temp 96.3 F 08/31/19 13:12 Pulse 81 08/31/19 13:12 Resp 16 08/31/19 13:12 BP 160/101 H 08/31/19 13:12 Pulse Ox 100 08/31/19 13:12 - Orders/Labs/Meds Orders: Active Orders 24 hr Category Date Time Status Sodium Chloride 0.9% [Saline Flush] Med 08/31/19 13:28 Active 10 ml FLUSH ASDIRECTED PRN Sodium Chloride 0.9% [Saline Flush] Med 08/31/19 13:28 Active 2.5 ml FLUSH ASDIRECTED PRN Saline Lock Insert [OM.PC] Stat Oth 08/31/19 13:28 Ordered Medication Orders Sodium Chloride (Saline Flush) 10 ml FLUSH ASDIRECTED PRN PRN Reason: Keep Vein Open Sodium Chloride (Saline Flush) 2.5 ml FLUSH ASDIRECTED PRN PRN Reason: Keep Vein Open Labs: Laboratory Tests 08/31/19 Range/Units 14:06 Sodium 142 (136-148) mmol/L Potassium 3.8 (3.5-5.1) mmol/L Chloride 103 (98-107) mmol/L Carbon Dioxide 24.6 (21.0-32.0) mmol/L BUN 14 (7.0-18.0) mg/dL Creatinine 1.3 (0.8-1.3) mg/dL Est Cr Clr Drug Dosing 84.60 mL/min Estimated GFR (MDRD) > 60.0 ml/min Glucose 102 (74-106) mg/dL Calcium 8.8 (8.5-10.1) mg/dL Magnesium 1.8 (1.8-2.4) mg/dL Total Bilirubin 0.5 (0.2-1.0) mg/dL AST 29 (15-37) IU/L ALT 35 (14-63) IU/L Alkaline Phosphatase 73 (46-116) U/L Creatine Kinase 209 (26-308) U/L Total Protein 8.4 H (6.4-8.2) g/dL Albumin 4.7 (3.4-5.0) g/dL Globulin 3.7 (2.6-4.0) g/dL Albumin/Globulin Ratio 1.3 (0.9-1.6) Meds: Medications Generic Name Dose Route Start Last Admin Trade Name Freq PRN Reason Stop Dose Admin Sodium Chloride 10 ml 08/31/19 13:28 Saline Flush FLUSH ASDIRECTED PRN Keep Vein Open Sodium Chloride 2.5 ml 08/31/19 13:28 Saline Flush FLUSH ASDIRECTED PRN Keep Vein Open Discontinued Medications Generic Name Dose Route Start Last Admin Trade Name Freq PRN Reason Stop Dose Admin Sodium Chloride 1,000 mls @ 999 mls/hr 08/31/19 13:28 08/31/19 14:10 Normal Saline IV 08/31/19 14:28 999 mls/hr STAT ONE Administration Metoclopramide HCl 10 mg 08/31/19 14:11 08/31/19 14:41 Reglan IV 08/31/19 14:12 10 mg ONETIME ONE Administration Departure - Departure Time of Disposition: 15:01 Disposition: Against Medical Advice 07 Condition: Good Clinical Impression: Muscle cramp Vomiting Qualifiers: Vomiting type: unspecified Vomiting Intractability: non-intractable Nausea presence: with nausea Qualified Code(s): R11.2 - Nausea with vomiting, unspecified - Discharge Information Referrals: PCP,None [Primary Care Provider] - Forms: ED Department Discharge - My Orders Last 24 Hours: My Active Orders 08/31/19 13:28 Sodium Chloride 0.9% [Saline Flush] 10 ml FLUSH ASDIRECTED PRN Sodium Chloride 0.9% [Saline Flush] 2.5 ml FLUSH ASDIRECTED PRN Saline Lock Insert [OM.PC] Stat - Assessment/Plan Last 24 Hours: My Active Orders 08/31/19 13:28 Sodium Chloride 0.9% [Saline Flush] 10 ml FLUSH ASDIRECTED PRN Sodium Chloride 0.9% [Saline Flush] 2.5 ml FLUSH ASDIRECTED PRN Saline Lock Insert [OM.PC] Stat
[2019-08-31] MEDS ORDERED: Metoclopramide 10 MG/2 ML SDV IV ONE (14:11)
[2019-08-31 14:52] LABS: BLOOD UREA NITROGEN,BUN 14 mg/dL (7.0-18.0); CARBON DIOXIDE,CO2 24.6 mmol/L (21.0-32.0); CHLORIDE,CL 103 mmol/L (98-107); GLUCOSE RANDOM 102 mg/dL (74-106); POTASSIUM,K 3.8 mmol/L (3.5-5.1); SODIUM,NA 142 mmol/L (136-148)
== END 2019-08-31 15:00 | disposition left against medical advice (07) ==
LOC: MW.ED 13:04
DX: R11.2 Nausea with vomiting, unspecified (principal); M62.838 Other muscle spasm
CPT/HCPCS: 36415; 80053; 82550; 83735; 96361; 96374; 99284; J2765; J7040

== ENCOUNTER 2019-09-01 08:02 | Emergency (ER) | payer OTHER ==
[2019-09-01] MEDS ORDERED: Ondansetron 4 MG/2 ML SDV IVPUSH ONE (08:22)
[2019-09-01] MEDS ORDERED: Sodium Chloride 0.9% 500 ML IV ONE (08:23)
--- NOTE | 2019-09-01 08:31 | EDM.PDOC ---
<Jacqueline Monte - Last Filed: 09/01/19 08:25> ED HPI GENERAL MEDICAL PROBLEM - General Chief Complaint: General Stated Complaint: VOMITING, LIGHT-HEADED Time Seen by Provider: 09/01/19 08:26 Source of Information: Reports: Patient, Old Records History Limitations: Reports: No Limitations - History of Present Illness INITIAL COMMENTS - FREE TEXT/NARRATIVE: Patient is a 29-year-old male presenting today with concerns of persistent nausea and vomiting; states overnight every 30-40 minutes he would experience nausea with retching and multiple episode had vomited up some blood mixed in with bile. Does mention in the morning after vomiting passing out and waking up w/ sweats and chills. Of note patient was seen here yesterday for similar symptoms; however left in the middle of therapy secondary to an emergency at home. Denies using any over the counter medications, illicit substances or consuming large quantities of alcohol. Due to the nausea and vomiting has not taken his daily medication of Paxil since Friday and his PRN doses of Wellbutrin for his anxiety. Currently at this time experiences anxiety and concerns about his health. Denies any alleviating or exacerbating factors. Denies position, food, urinating or bowel movements having any alleviating or exacerbating effects. Duration: Day(s): (4) Quality: Reports: Same as Previous Episode abdominal Pain Score (Numeric/FACES): 1 - Related Data Allergies Allergy/AdvReac Type Severity Reaction Status Date / Time No Known Allergies Allergy Verified 09/01/19 08:08 Home Meds: Home Meds Ondansetron [Zofran ODT] 4 mg PO Q6H PRN #8 tab.dis 08/31/19 [Rx] PARoxetine [Paxil] 20 mg PO DAILY 08/31/19 [History] busPIRone [Buspar] 5 mg PO DAILY 08/31/19 [History] Metoclopramide HCl [Reglan] 5 mg PO TID PRN 2 Days #6 tablet 09/01/19 [Rx] traZODone HCl [Trazodone HCl] 50 mg PO BEDTIME 09/01/19 [History] Past Medical History - Past Health History Medical/Surgical History: Denies Medical/Surgical History HEENT History: Reports: None Cardiovascular History: Reports: None Respiratory History: Reports: None Gastrointestinal History: Reports: None Genitourinary History: Reports: None Musculoskeletal History: Reports: None Neurological History: Reports: None Psychiatric History: Reports: None Endocrine/Metabolic History: Reports: None Hematologic History: Reports: None Immunologic History: Reports: None Oncologic (Cancer) History: Reports: None Dermatologic History: Reports: None - Infectious Disease History Infectious Disease History: Reports: Chicken Pox - Past Surgical History Head Surgeries/Procedures: Reports: None HEENT Surgical History: Reports: None Cardiovascular Surgical History: Reports: None Respiratory Surgical History: Reports: None GI Surgical History: Reports: Appendectomy, Hernia, Inguinal, Lysis of Adhesions Male Surgical History: Reports: None Endocrine Surgical History: Reports: None Neurological Surgical History: Reports: None Musculoskeletal Surgical History: Reports: None Oncologic Surgical History: Reports: None Dermatological Surgical History: Reports: None Social & Family History - Family History Family Medical History: Noncontributory - Tobacco Use Smoking Status *Q: Light Tobacco Smoker Years of Tobacco use: 5 Packs/Tins Daily: 0.1 - Caffeine Use Caffeine Use: Reports: Coffee, Energy Drinks, Soda, Tea Caffeine Use Comment: 1 daily - Recreational Drug Use Recreational Drug Use: No ED ROS GENERAL - Review of Systems Review Of Systems: See Below Constitutional: Denies: Fever, Chills HEENT: Reports: No Symptoms Respiratory: Reports: No Symptoms Cardiovascular: Reports: No Symptoms GI/Abdominal: Reports: Nausea, Vomiting. Denies: Black Stool, Bloody Stool, Constipation, Diarrhea, Melena : Denies: Discharge, Dysuria Musculoskeletal: Denies: Neck Pain, Back Pain Neurological: Denies: Confusion, Dizziness, Headache Psychiatric: Reports: Anxiety. Denies: Suicidal Ideation ED EXAM, GENERAL - Physical Exam Exam: See Below Exam Limited By: No Limitations General Appearance: Alert, WD/WN, Anxious Eye Exam: Left Eye: EOMI Throat/Mouth: Normal Inspection Head: Atraumatic, Normocephalic Respiratory/Chest: No Respiratory Distress Cardiovascular: Regular Rate, Rhythm, No Edema GI/Abdominal: Normal Bowel Sounds, Soft, Non-Tender, No Organomegaly, No Distention, No Mass Extremities: Normal Inspection, Normal Range of Motion Neurological: Alert, Oriented, CN II-XII Intact Psychiatric: Anxious Skin Exam: Warm, Dry Course - Vital Signs Last Recorded V/S: Last Vital Signs Temp 36.4 C 09/01/19 08:09 Pulse 84 09/01/19 10:43 Resp 18 09/01/19 10:43 BP 143/94 H 09/01/19 10:43 Pulse Ox 100 09/01/19 10:43 - Orders/Labs/Meds Labs: Laboratory Tests 09/01/19 09/01/19 09/01/19 Range/Units 08:35 08:35 08:55 WBC 7.38 (4.0-11.0) K/uL RBC 5.12 (4.50-5.90) M/uL Hgb 15.7 (13.0-17.0) g/dL Hct 44.2 (38.0-50.0) % MCV 86.3 (80.0-98.0) fL MCH 30.7 (27.0-32.0) pg MCHC 35.5 (31.0-37.0) g/dL RDW Std Deviation 38.4 (28.0-62.0) fl RDW Coeff of Sindy 12 (11.0-15.0) % Plt Count 205 (150-400) K/uL MPV 9.40 (7.40-12.00) fL Neut % (Auto) 79.2 (48.0-80.0) % Lymph % (Auto) 14.9 L (16.0-40.0) % Ness % (Auto) 5.7 (0.0-15.0) % Eos % (Auto) 0.1 (0.0-7.0) % Baso % (Auto) 0.1 (0.0-1.5) % Neut # (Auto) 5.8 H (1.4-5.7) K/uL Lymph # (Auto) 1.1 (0.6-2.4) K/uL Ness # (Auto) 0.4 (0.0-0.8) K/uL Eos # (Auto) 0.0 (0.0-0.7) K/uL Baso # (Auto) 0.0 (0.0-0.1) K/uL Nucleated RBC % 0.0 /100WBC Nucleated RBCs # 0 K/uL Sodium 140 (136-148) mmol/L Potassium 3.5 (3.5-5.1) mmol/L Chloride 103 (98-107) mmol/L Carbon Dioxide 26.0 (21.0-32.0) mmol/L BUN 14 (7.0-18.0) mg/dL Creatinine 1.3 (0.8-1.3) mg/dL Est Cr Clr Drug Dosing 84.60 mL/min Estimated GFR (MDRD) > 60.0 ml/min Glucose 112 H (74-106) mg/dL Calcium 8.5 (8.5-10.1) mg/dL Total Bilirubin 0.8 (0.2-1.0) mg/dL AST 31 (15-37) IU/L ALT 41 (14-63) IU/L Alkaline Phosphatase 80 (46-116) U/L Total Protein 7.9 (6.4-8.2) g/dL Albumin 4.4 (3.4-5.0) g/dL Globulin 3.5 (2.6-4.0) g/dL Albumin/Globulin Ratio 1.3 (0.9-1.6) Urine Opiates Screen NEGATIVE (NEGATIVE) Ur Oxycodone Screen NEGATIVE (NEGATIVE) Urine Methadone Screen NEGATIVE (NEGATIVE) Ur Barbiturates Screen NEGATIVE (NEGATIVE) Ur Phencyclidine Scrn NEGATIVE (NEGATIVE) Ur Amphetamine Screen NEGATIVE (NEGATIVE) U Methamphetamines Scrn NEGATIVE (NEGATIVE) U Benzodiazepines Scrn NEGATIVE (NEGATIVE) U Cocaine Metab Screen NEGATIVE (NEGATIVE) U Marijuana (THC) Screen NEGATIVE (NEGATIVE) Ethyl Alcohol < 3.0 mg/dL Meds: Medications Discontinued Medications Generic Name Dose Route Start Last Admin Trade Name Freq PRN Reason Stop Dose Admin Sodium Chloride 500 mls @ 999 mls/hr 09/01/19 08:23 09/01/19 08:36 Normal Saline IV 09/01/19 08:53 999 mls/hr STAT ONE Administration Non-Formulary Medication 5 mg 09/02/19 09:00 Buspirone PO DAILY [facility] Ondansetron HCl 8 mg 09/01/19 08:22 09/01/19 08:35 Zofran IVPUSH 09/01/19 08:23 8 mg ONETIME ONE Administration Paroxetine HCl 20 mg 09/01/19 09:15 09/01/19 09:25 Paxil PO 20 mg DAILY KURT Administration Trazodone HCl 50 mg 09/01/19 21:00 Trazodone PO BEDTIME KURT Departure - Departure Disposition: Home, Self-Care 01 Clinical Impression: Encounter for medical screening examination, Medical non-compliance - Discharge Information Prescriptions: Metoclopramide HCl [Reglan] 5 mg PO TID PRN 2 Days #6 tablet PRN Reason: Nausea Instructions: Nausea, Adult Referrals: PCP,None [Primary Care Provider] - Forms: ED Department Discharge Additional Instructions: The following information is given to patients seen in the emergency department who are being discharged to home. This information is to outline your options for follow-up care. We provide all patients seen in our emergency department with a follow-up referral. The need for follow-up, as well as the timing and circumstances, are variable depending upon the specifics of your emergency department visit. If you don't have a primary care physician on staff, we will provide you with a referral. We always advise you to contact your personal physician following an emergency department visit to inform them of the circumstance of the visit and for follow-up with them and/or the need for any referrals to a consulting specialist. The emergency department will also refer you to a specialist when appropriate. This referral assures that you have the opportunity for followup care with a specialist. All of these measure are taken in an effort to provide you with optimal care, which includes your followup. Under all circumstances we always encourage you to contact your private physician who remains a resource for coordinating your care. When calling for followup care, please make the office aware that this follow-up is from your recent emergency room visit. If for any reason you are refused follow-up, please contact the [facility] emergency department at and asked to speak to the emergency department charge nurse. Reglan as prescribed follow-up primary medical doctor return as needed as discussed <Narciso Costa - Last Filed: 09/01/19 11:19> Course - Vital Signs Text/Narrative:: I saw evaluated the patient. I reviewed the resident's note and agree. Departure - Departure Time of Disposition: 11:18 Condition: Good
[2019-09-01 09:08] LABS: BLOOD UREA NITROGEN,BUN 14 mg/dL (7.0-18.0); CHLORIDE,CL 103 mmol/L (98-107); GLUCOSE RANDOM 112 mg/dL (74-106); POTASSIUM,K 3.5 mmol/L (3.5-5.1); SODIUM,NA 140 mmol/L (136-148)
[2019-09-01 10:44] VITALS: BP 143/94; PULSE 84
[2019-09-01] MEDS ORDERED: traZODone 50 MG Tab PO SCH (21:00)
[2019-09-02] MEDS ORDERED: BUSPIRONE 5 MG PO SCH (09:00)
== END 2019-09-01 10:44 | disposition home or self-care (01) ==
LOC: MW.ED 08:02
DX: Z13.9 Encounter for screening, unspecified (principal); F41.9 Anxiety disorder, unspecified; F17.210 Nicotine dependence, cigarettes, uncomplicated; Z91.19 Patient's noncompliance with other medical treatment and regimen; Z79.899 Other long term (current) drug therapy
CPT/HCPCS: 36415; 80053; 80305; 80320; 85025; 96361; 96374; 99284; A9270; J2405; J7040; 99283; G0480

== ENCOUNTER 2019-09-01 18:43 | Observation (INO) | payer OTHER ==
--- NOTE | 2019-09-01 19:13 | EDM.PDOCBH ---
ED HPI GENERAL MEDICAL PROBLEM - General Chief Complaint: Drug or Alcohol Abuse Stated Complaint: ALCHOHOL WITHDRAWL Time Seen by Provider: 09/01/19 19:13 Source of Information: Reports: Patient History Limitations: Reports: No Limitations - History of Present Illness INITIAL COMMENTS - FREE TEXT/NARRATIVE: HISTORY AND PHYSICAL: History of present illness: Patient is a 29-year-old male presents to the ED with complaint of nausea and vomiting. This is his 4th visit in the past 2 days. He states he has not been honest on previous visit and believes he is going through alcohol withdrawal. He has a history of heavy alcohol use, had been sober for the past 2 years. He states last week he started drinking a handle a day x 5 days. His last drink was 4 nights ago. For the past 2 days he has not been able to keep anything down. He was given IV fluids at his last 3 visits. He has taken zofran and reglan at home without relief of vomiting. He did have some blood in his vomit yesterday but states today he has not had any hematemesis. He denies history of seizure from alcohol withdrawal. He does fly out to [place] tomorrow afternoon for treatment. Patient did have labs done this morning which were wnl. Review of systems: As per history of present illness and below otherwise all systems reviewed and negative. Past medical history: As per history of present illness and as reviewed below otherwise noncontributory. Surgical history: As per history of present illness and as reviewed below otherwise noncontributory. Social history: No reported history of drug or alcohol abuse. Family history: As per history of present illness and as reviewed below otherwise noncontributory. Physical exam: General: Patient sitting comfortably in no acute distress and nontoxic appearing HEENT: Atraumatic, normocephalic, pupils reactive, negative for conjunctival pallor or scleral icterus, mucous membranes moist, throat clear, neck supple, nontender, trachea midline. No meningeal signs. Lungs: Clear to auscultation, breath sounds equal bilaterally, chest nontender. Heart: S1S2, regular, negative for clicks, rubs, or overt murmur. Abdomen: Soft, nondistended, nontender. Negative for masses or hepatosplenomegaly. Negative for costovertebral tenderness. No rigidity, rebound , guarding. Pelvis: Stable nontender. Genitourinary: Deferred. Rectal: Deferred. Extremities: Atraumatic, negative for cords or calf pain. Neurovascular unremarkable. Neuro: Awake, alert, oriented. Cranial nerves II through XII unremarkable. Cerebellum unremarkable. Motor and sensory unremarkable throughout. Exam nonfocal. Notes: Diagnostics: [] Therapeutics: 1L NS IV Prescriptions: Impression: Vomiting, dehydration, gastritis, alcohol abuse Plan: Discussed with Dr. Adkins, patient will be admitted to observation for IV fluids. Definitive disposition and diagnosis as appropriate pending reevaluation and review of above. no pain Pain Score (Numeric/FACES): 0 - Related Data Allergies Allergy/AdvReac Type Severity Reaction Status Date / Time No Known Allergies Allergy Verified 09/01/19 08:08 Home Meds: Home Meds Ondansetron [Zofran ODT] 4 mg PO Q6H PRN #8 tab.dis 08/31/19 [Rx] PARoxetine [Paxil] 20 mg PO DAILY 08/31/19 [History] busPIRone [Buspar] 5 mg PO DAILY 08/31/19 [History] Metoclopramide HCl [Reglan] 5 mg PO TID PRN 2 Days #6 tablet 09/01/19 [Rx] traZODone HCl [Trazodone HCl] 50 mg PO BEDTIME 09/01/19 [History] Past Medical History - Past Health History Medical/Surgical History: Denies Medical/Surgical History HEENT History: Reports: None Cardiovascular History: Reports: None Respiratory History: Reports: None Gastrointestinal History: Reports: None Genitourinary History: Reports: None Musculoskeletal History: Reports: None Neurological History: Reports: None Psychiatric History: Reports: None Endocrine/Metabolic History: Reports: None Hematologic History: Reports: None Immunologic History: Reports: None Oncologic (Cancer) History: Reports: None Dermatologic History: Reports: None - Infectious Disease History Infectious Disease History: Reports: Chicken Pox - Past Surgical History Head Surgeries/Procedures: Reports: None HEENT Surgical History: Reports: None Cardiovascular Surgical History: Reports: None Respiratory Surgical History: Reports: None GI Surgical History: Reports: Appendectomy, Hernia, Inguinal, Lysis of Adhesions Male Surgical History: Reports: None Endocrine Surgical History: Reports: None Neurological Surgical History: Reports: None Musculoskeletal Surgical History: Reports: None Oncologic Surgical History: Reports: None Dermatological Surgical History: Reports: None Social & Family History - Family History Family Medical History: Noncontributory - Tobacco Use Smoking Status *Q: Current Some Day Smoker Years of Tobacco use: 5 Packs/Tins Daily: 0.5 - Caffeine Use Caffeine Use: Reports: Coffee, Energy Drinks, Soda, Tea Caffeine Use Comment: 1 daily - Recreational Drug Use Recreational Drug Use: No ED ROS GENERAL - Review of Systems Review Of Systems: ROS reveals no pertinent complaints other than HPI. ED EXAM, BEHAVIORAL HEALTH - Physical Exam Exam: See Below (see dictation) COURSE, BEHAVIORAL HEALTH COMP - Course Vital Signs: Last Vital Signs Temp 97.9 F 09/01/19 18:49 Pulse 72 09/01/19 18:49 Resp 18 09/01/19 18:49 BP 173/106 H 09/01/19 18:49 Pulse Ox 98 09/01/19 18:49 Orders, Labs, Meds: Active Orders 24 hr Category Date Time Status Admission Status [Patient Status] [ADT] Stat ADT 09/01/19 19:13 Active Departure - Departure Time of Disposition: 19:34 Disposition: Refer to Observation Condition: Good Clinical Impression: Dehydration, Gastritis, Alcohol abuse - Discharge Information Referrals: PCP,None [Primary Care Provider] - Forms: ED Department Discharge - My Orders Last 24 Hours: My Active Orders 09/01/19 19:13 Admission Status [Patient Status] [ADT] Stat - Assessment/Plan Last 24 Hours: My Active Orders 09/01/19 19:13 Admission Status [Patient Status] [ADT] Stat
[2019-09-01] MEDS ORDERED: Ondansetron 4 MG/2 ML SDV IVPUSH ONE (19:52)
[2019-09-01] MEDS ORDERED: Sodium Chloride 0.9% 1,000 ML IV ONE (19:52)
[2019-09-01] MEDS ORDERED: Lactated Ringers 1,000 ML IV ONE (19:59)
--- NOTE | 2019-09-01 22:21 | PCM.HP.2 ---
H&P History of Present Illness - General Date of Service: 09/01/19 Admit Problem/Dx: Admission Diagnosis/Problem Admission Diagnosis/Problem Gastritis - History of Present Illness Initial Comments - Free Text/Narative: 29 yo male with pmh of depression and alcohol abuse who presents to the ED with complaints of nausea and vomiting. PAtient reports he had been sober for 2 years but had a week long drinking binge of a handle of vodka a day. Patient reports his last drink was three days ago. He thinks he is going through withdrawal due to symptoms of nausea and vomiting. He reports he has not been able to keep anything down including his mood stabilizing medications. This is the fourth time in two days that he was seen in the ED due to these symptoms. He does feel anxious and reports that he plans on checking himself into rehab in [place] and has flight out tomorrow. no pain Pain Score (Numeric/FACES): 0 - Related Data Allergies/Adverse Reactions: Allergies Allergy/AdvReac Type Severity Reaction Status Date / Time No Known Allergies Allergy Verified 09/01/19 21:08 Home Medications: Home Meds PARoxetine [Paxil] 20 mg PO DAILY 08/31/19 [History] busPIRone [Buspar] 5 mg PO DAILY 08/31/19 [History] Metoclopramide HCl [Reglan] 5 mg PO TID PRN 2 Days #6 tablet 09/01/19 [Rx] traZODone HCl [Trazodone HCl] 50 mg PO BEDTIME 09/01/19 [History] Ondansetron [Zofran ODT] 4 mg PO Q4H PRN #15 tab.dis 09/02/19 [Rx] Past Medical History - Past Health History Medical/Surgical History: Denies Medical/Surgical History HEENT History: Reports: None Cardiovascular History: Reports: None, Other (See Below) Other Cardiovascular History: palpitations related to alcohol abuse Respiratory History: Reports: None Gastrointestinal History: Reports: None Genitourinary History: Reports: None Musculoskeletal History: Reports: None Neurological History: Reports: None Psychiatric History: Reports: Anxiety, Depression Endocrine/Metabolic History: Reports: None Hematologic History: Reports: None Immunologic History: Reports: None Oncologic (Cancer) History: Reports: None Dermatologic History: Reports: None - Infectious Disease History Infectious Disease History: Reports: Chicken Pox - Past Surgical History Head Surgeries/Procedures: Reports: None HEENT Surgical History: Reports: None Cardiovascular Surgical History: Reports: None Respiratory Surgical History: Reports: None GI Surgical History: Reports: Appendectomy, Hernia, Inguinal, Lysis of Adhesions Male Surgical History: Reports: None Endocrine Surgical History: Reports: None Neurological Surgical History: Reports: None Musculoskeletal Surgical History: Reports: None Oncologic Surgical History: Reports: None Dermatological Surgical History: Reports: None Social & Family History - Family History Family Medical History: Noncontributory Psychiatric: Reports: Other (See Below) Other Psychiatric Family History: family hx of alcohol abuse - Tobacco Use Smoking Status *Q: Former Smoker Years of Tobacco use: 5 Packs/Tins Daily: 0.5 Used Tobacco, but Quit: Yes Month/Year Tobacco Last Used: 2018 - Caffeine Use Caffeine Use: Reports: Energy Drinks Caffeine Use Comment: 1 daily - Alcohol Use Date of Last Drink: 08/28/19 - Recreational Drug Use Recreational Drug Use: No H&P Review of Systems - Review of Systems: Review Of Systems: ROS reveals no pertinent complaints other than HPI. Exam - Exam Exam: See Below - Vital Signs Vital Signs: Last Vital Signs Temp 36.4 C 09/01/19 21:00 Pulse 65 09/01/19 21:00 Resp 16 09/01/19 21:00 BP 155/104 H 09/01/19 21:00 Pulse Ox 100 09/01/19 20:57 Weight: 85.8 kg - Exam General: Alert, Oriented HEENT: Mucosa Moist & [place] Lungs: Clear to Auscultation, Normal Respiratory Effort Cardiovascular: Regular Rate, Regular Rhythm GI/Abdominal Exam: Soft, Non-Tender, No Distention Extremities: Non-Tender, No Pedal Edema Skin: Warm, Dry, Intact Neurological: Cranial Nerves Intact. No: Focal Deficit - Patient Data Result Diagrams: 09/02/19 06:00 09/02/19 06:00 Problem List Initiated/Reviewed/Updated: Yes Orders Last 24hrs: Active Orders 24 hr Category Date Time Status Admission Status [Patient Status] [ADT] Stat ADT 09/01/19 19:13 Active Antiembolic Devices [RC] PER UNIT ROUTINE Care 09/01/19 22:18 Active Influenza Vaccine Charge [RC] .DISCHARGE Care 09/01/19 22:04 Active Oxygen Therapy [RC] PRN Care 09/01/19 22:17 Active Up ad Frida [RC] ASDIRECTED Care 09/01/19 22:17 Active VTE/DVT Education [RC] PER UNIT ROUTINE Care 09/01/19 22:17 Active Vital Signs [RC] Q4H Care 09/01/19 22:17 Active Clear Liquid Diet [DIET] Diet 09/01/19 Breakfast Active CBC WITH AUTO DIFF [HEME] AM Lab 09/02/19 05:11 Ordered COMPREHENSIVE METABOLIC PN,CMP [CHEM] AM Lab 09/02/19 05:11 Ordered FLU Vacc [id number](6MOS+)/PF [Fluzone Quad Med 09/02/19 10:00 Once Syringe] 60 mcg IM .ONCE ONE Folic Acid Med 09/01/19 21:00 Ordered 1 mg PO BEDTIME LORazepam [Ativan] Med 09/01/19 22:15 Ordered See Protocol IVPUSH Q4H PRN Ondansetron [Zofran] Med 09/01/19 22:17 Ordered 4 mg IVPUSH Q4H PRN PARoxetine [Paxil] Med 09/02/19 09:00 Ordered 20 mg PO DAILY Sodium Chloride 0.9% [Normal Saline] 1,000 ml Med 09/01/19 22:30 Ordered IV ASDIRECTED Thiamine [Vitamin B-1] Med 09/02/19 21:00 Ordered 100 mg PO BEDTIME busPIRone Med 09/02/19 09:00 Ordered 5 mg PO DAILY Sequential Compression Device [OM.PC] Per Unit Routine Oth 09/01/19 22:18 Ordered Resuscitation Status Routine Resus Stat 09/01/19 22:17 Ordered Medication Orders Folic Acid (Folic Acid) 1 mg PO BEDTIME [facility] Sodium Chloride (Normal Saline) 1,000 mls @ 125 mls/hr IV ASDIRECTED [facility] Influenza Virus Vaccine (Fluzone Quad Syringe) 60 mcg IM .ONCE ONE Stop: 09/02/19 10:01 Lorazepam (Ativan) 0 mg IVPUSH Q4H PRN; Protocol PRN Reason: Agitation Non-Formulary Medication (Buspirone) 5 mg PO DAILY [facility] Ondansetron HCl (Zofran) 4 mg IVPUSH Q4H PRN PRN Reason: Nausea Paroxetine HCl (Paxil) 20 mg PO DAILY [facility] Thiamine HCl (Vitamin B-1) 100 mg PO BEDTIME [facility] Assessment/Plan Comment:: 29 yo male admitted for alcoholic gastritis. We will treat with IV fluids, antiemetics and bowel rest. PAtient has already reported improvement in his symptoms. We will also monitor on CIWA protocol.
[2019-09-01] MEDS ORDERED: Folic Acid 1 MG Tab PO SCH (22:30)
[2019-09-01] MEDS ORDERED: Pantoprazole 40 MG in Sodium Chloride 0.9% 10 ML IV SCH (22:30)
[2019-09-01] MEDS: Ondansetron 4 MG/2 ML SDV IVPUSH PRN (22:42)
[2019-09-01] MEDS: Sodium Chloride 0.9% 1,000 ML IV SCH (22:43)
[2019-09-02] MEDS: LORazepam 2 MG/ML SDV IVPUSH PRN ×2 (00:01→07:28)
[2019-09-02] MEDS: Sodium Chloride 0.9% 1,000 ML IV SCH (06:28)
[2019-09-02] MEDS: Ondansetron 4 MG/2 ML SDV IVPUSH PRN ×2 (06:28→12:13)
[2019-09-02 06:54] LABS: BLOOD UREA NITROGEN,BUN 12 mg/dL (7.0-18.0); CARBON DIOXIDE,CO2 26.8 mmol/L (21.0-32.0); CHLORIDE,CL 103 mmol/L (98-107); GLUCOSE RANDOM 93 mg/dL (74-106); SODIUM,NA 139 mmol/L (136-148)
[2019-09-02] MEDS ORDERED: busPIRone 5 MG Tab PO SCH (09:00)
[2019-09-02] MEDS ORDERED: PARoxetine 20 MG Tab PO SCH (09:00)
[2019-09-02] MEDS ORDERED: FLU Vacc QS2019-20(6MOS+)/PF 60 MCG/0.5 ML SYRINGE IM ONE (10:00)
[2019-09-02] MEDS ORDERED: Pantoprazole 40 MG in Sodium Chloride 0.9% 10 ML IV SCH (10:45)
--- NOTE | 2019-09-02 10:48 | PCM.PN ---
- General Info Date of Service: 09/02/19 Admission Dx/Problem (Free Text): Admission Diagnosis/Problem Admission Diagnosis/Problem Gastritis Subjective Update: Feeling ok this morning, still having some nausea and overall doesn't feel well. No chest pain or SOB. Functional Status: Denies: Tolerating Diet - Review of Systems General: Reports: No Symptoms. Denies: Fever, Weakness, Fatigue HEENT: Reports: No Symptoms. Denies: Headaches, Sore Throat, Visual Changes Pulmonary: Reports: No Symptoms. Denies: Shortness of Breath Cardiovascular: Reports: No Symptoms. Denies: Chest Pain Gastrointestinal: Reports: No Symptoms. Denies: Abdominal Pain, Nausea, Vomiting Genitourinary: Reports: No Symptoms. Denies: Dysuria, Frequency, Burning Musculoskeletal: Reports: No Symptoms Neurological: Reports: No Symptoms Psychiatric: Reports: No Symptoms - Patient Data Vitals - Most Recent: Last Vital Signs Temp 97.9 F 09/02/19 06:55 Pulse 77 09/02/19 06:55 Resp 18 09/02/19 06:55 BP 142/98 H 09/02/19 06:55 Pulse Ox 99 09/02/19 06:55 Weight - Most Recent: 85.8 kg I&O - Last 24 Hours: Intake & Output 09/01/19 09/02/19 09/02/19 22:59 06:59 14:59 Intake Total 983 Output Total 180 Balance 803 Lab Results Last 24 Hours: Laboratory Results - last 24 hr 09/02/19 09/02/19 Range/Units 06:00 06:00 WBC 7.09 (4.0-11.0) K/uL RBC 4.71 (4.50-5.90) M/uL Hgb 13.9 (13.0-17.0) g/dL Hct 41.2 (38.0-50.0) % MCV 87.5 (80.0-98.0) fL MCH 29.5 (27.0-32.0) pg MCHC 33.7 (31.0-37.0) g/dL RDW Std Deviation 39.0 (28.0-62.0) fl RDW Coeff of Sindy 12 (11.0-15.0) % Plt Count 202 (150-400) K/uL MPV 9.60 (7.40-12.00) fL Neut % (Auto) 66.9 (48.0-80.0) % Lymph % (Auto) 24.7 (16.0-40.0) % [place] % (Auto) 8.0 (0.0-15.0) % Eos % (Auto) 0.3 (0.0-7.0) % Baso % (Auto) 0.1 (0.0-1.5) % Neut # (Auto) 4.7 (1.4-5.7) K/uL Lymph # (Auto) 1.8 (0.6-2.4) K/uL [place] # (Auto) 0.6 (0.0-0.8) K/uL Eos # (Auto) 0.0 (0.0-0.7) K/uL Baso # (Auto) 0.0 (0.0-0.1) K/uL Nucleated RBC % 0.0 /100WBC Nucleated RBCs # 0 K/uL Sodium 139 (136-148) mmol/L Potassium 4.0 (3.5-5.1) mmol/L Chloride 103 (98-107) mmol/L Carbon Dioxide 26.8 (21.0-32.0) mmol/L BUN 12 (7.0-18.0) mg/dL Creatinine 1.2 (0.8-1.3) mg/dL Est Cr Clr Drug Dosing 91.65 mL/min Estimated GFR (MDRD) > 60.0 ml/min Glucose 93 (74-106) mg/dL Calcium 7.9 L (8.5-10.1) mg/dL Total Bilirubin 0.9 (0.2-1.0) mg/dL AST 26 (15-37) IU/L ALT 38 (14-63) IU/L Alkaline Phosphatase 69 (46-116) U/L Total Protein 7.0 (6.4-8.2) g/dL Albumin 3.8 (3.4-5.0) g/dL Globulin 3.2 (2.6-4.0) g/dL Albumin/Globulin Ratio 1.2 (0.9-1.6) Med Orders - Current: Current Medications Buspirone HCl (Buspar) 5 mg PO DAILY [facility] Last Admin: 09/02/19 09:33 Dose: 5 mg Folic Acid (Folic Acid) 1 mg PO BEDTIME [facility] Last Admin: 09/01/19 22:42 Dose: 1 mg Sodium Chloride (Normal Saline) 1,000 mls @ 125 mls/hr IV ASDIRECTED [facility] Last Admin: 09/02/19 06:28 Dose: 125 mls/hr Pantoprazole Sodium 40 mg/ (Sodium Chloride) 10 mls @ 300 mls/hr IV Q12H [facility] Lorazepam (Ativan) 0 mg IVPUSH Q4H PRN; Protocol PRN Reason: Agitation Last Admin: 09/02/19 07:28 Dose: 1 mg Ondansetron HCl (Zofran) 4 mg IVPUSH Q4H PRN PRN Reason: Nausea Last Admin: 09/02/19 06:28 Dose: 4 mg Paroxetine HCl (Paxil) 20 mg PO DAILY [facility] Last Admin: 09/02/19 09:33 Dose: 20 mg Thiamine HCl (Vitamin B-1) 100 mg PO BEDTIME [facility] Discontinued Medications Lactated Ringer's (Ringers, Lactated) 1,000 mls @ 999 mls/hr IV .BOLUS ONE Stop: 09/01/19 20:59 Last Admin: 09/01/19 19:59 Dose: 999 mls/hr Pantoprazole Sodium 40 mg/ (Sodium Chloride) 10 mls @ 300 mls/hr IV Q24H [facility] Last Admin: 09/01/19 22:42 Dose: 300 mls/hr Influenza Virus Vaccine (Fluzone Quad [id number] Syringe) 60 mcg IM .ONCE ONE Stop: 09/02/19 10:01 Ondansetron HCl (Zofran) 4 mg IVPUSH ONETIME ONE Stop: 09/01/19 19:53 Last Admin: 09/01/19 19:57 Dose: 4 mg - Exam General: Alert, Oriented, Cooperative, No Acute Distress Lungs: Clear to Auscultation, Normal Respiratory Effort GI/Abdominal Exam: Normal Bowel Sounds, Soft, Non-Tender, No Organomegaly Extremities: Normal Inspection, Normal Range of Motion, Non-Tender, No Pedal Edema Neurological: No New Focal Deficit Psy/Mental Status: Alert, Normal Affect, Normal Mood - Problem List & Annotations (1) Alcohol abuse SNOMED Code(s): 44613533 Code(s): F10.10 - ALCOHOL ABUSE, UNCOMPLICATED Status: Acute Current Visit: Yes (2) Dehydration SNOMED Code(s): 80023464 Code(s): E86.0 - DEHYDRATION Status: Acute Current Visit: Yes (3) Gastritis SNOMED Code(s): 8200642 Code(s): K29.70 - GASTRITIS, UNSPECIFIED, WITHOUT BLEEDING Status: Acute Current Visit: Yes - Problem List Review Problem List Initiated/Reviewed/Updated: Yes - My Orders Last 24 Hours: My Active Orders 09/02/19 10:45 Pantoprazole [ProTONIX IV] 40 mg Sodium Chloride 0.9% [Normal Saline] 10 ml IV Q12H - Plan Plan:: 29 yo male admitted for alcoholic gastritis. 1. Alcoholic gastritis and withdrawal: Not feeling well enough today to catch flight. Continue IV fluids, antiemetics and bowel rest. CIWAA protocol with Ativan. Thiamine and folic acid. Increase Protonix to BID. VTE prophylaxis: SCDs and ambulation Disp: 1 day
--- NOTE | 2019-09-02 11:16 | PCM.DCSUM1 ---
Discharge Summary - Hospital Course Brief History: 29 yo male with pmh of depression and alcohol abuse who presents to the ED with complaints of nausea and vomiting. PAtient reports he had been sober for 2 years but had a week long drinking binge of a handle of vodka a day. Patient reports his last drink was three days ago. He thinks he is going through withdrawal due to symptoms of nausea and vomiting. He reports he has not been able to keep anything down including his mood stabilizing medications. This is the fourth time in two days that he was seen in the ED due to these symptoms. He does feel anxious and reports that he plans on checking himself into rehab in [place] and has flight out already booked. Diagnosis: Stroke: No Modified [place] Scale: No Symptoms at All Modified [place] Scale Score: 0 - Discharge Data Discharge Date: 09/02/19 Discharge Disposition: Home, Self-Care 01 Condition: Good - Referral to Home Health Primary Care Physician: PCP None - Discharge Diagnosis/Problem(s) (1) Alcohol abuse SNOMED Code(s): 32790639 ICD Code: F10.10 - ALCOHOL ABUSE, UNCOMPLICATED Status: Acute (2) Dehydration SNOMED Code(s): 38916764 ICD Code: E86.0 - DEHYDRATION Status: Acute (3) Gastritis SNOMED Code(s): 0171464 ICD Code: K29.70 - GASTRITIS, UNSPECIFIED, WITHOUT BLEEDING Status: Acute - Patient Instructions Diet: Full Liquid Diet Activity: As Tolerated Driving: Do Not Drive Showering/Bathing: May Shower Notify Provider of: Fever, Increased Pain, Swelling and Redness, Drainage, Nausea and/or Vomiting Other/Special Instructions: Take flight to rehabilitation, continue to refrain from alcohol use. - Discharge Plan *PRESCRIPTION DRUG MONITORING PROGRAM REVIEWED*: Not Applicable *COPY OF PRESCRIPTION DRUG MONITORING REPORT IN PATIENT JEVON: Not Applicable Prescriptions/Med Rec: Ondansetron [Zofran ODT] 4 mg PO Q4H PRN #15 tab.dis PRN Reason: Nausea Home Medications: Home Meds PARoxetine [Paxil] 20 mg PO DAILY 08/31/19 [History] busPIRone [Buspar] 5 mg PO DAILY 08/31/19 [History] Metoclopramide HCl [Reglan] 5 mg PO TID PRN 2 Days #6 tablet 09/01/19 [Rx] traZODone HCl [Trazodone HCl] 50 mg PO BEDTIME 09/01/19 [History] Ondansetron [Zofran ODT] 4 mg PO Q4H PRN #15 tab.dis 09/02/19 [Rx] Oxygen Therapy Mode: Room Air Patient Handouts: Gastritis, Adult, Uuvt-no-Aifp, Ondansetron tablets, What You Need to Know About Alcohol Abuse and Dependence, Adult - Discharge Summary/Plan Comment DC Time >30 min.: No Discharge Summary/Plan Comment: Admitting Diagnoses: Alcoholic gastritis Alcohol abuse Discharge Diagnoses: Alcoholic gastritis Alcohol abuse Rod was admitted and treated with Protonix Zofran and IVFs. He is feeling somewhat improved today, but is eager to go home due to needing to catch his flight [place]. He was given Protonix and Zofran prior to discharge. He was also provided with Zofran prescription for discharge. He is to return to nearest ED if concerns should arrive. He was eager and anxious to start rehabilitation for alcohol abuse. - Patient Data Vitals - Most Recent: Last Vital Signs Temp 97.9 F 09/02/19 06:55 Pulse 77 09/02/19 06:55 Resp 18 09/02/19 06:55 BP 142/98 H 09/02/19 06:55 Pulse Ox 99 09/02/19 06:55 Weight - Most Recent: 85.8 kg I&O - Last 24 hours: Intake & Output 09/01/19 09/02/19 09/02/19 22:59 06:59 14:59 Intake Total 983 Output Total 180 Balance 803 Lab Results - Last 24 hrs: Laboratory Results - last 24 hr 09/02/19 09/02/19 Range/Units 06:00 06:00 WBC 7.09 (4.0-11.0) K/uL RBC 4.71 (4.50-5.90) M/uL Hgb 13.9 (13.0-17.0) g/dL Hct 41.2 (38.0-50.0) % MCV 87.5 (80.0-98.0) fL MCH 29.5 (27.0-32.0) pg MCHC 33.7 (31.0-37.0) g/dL RDW Std Deviation 39.0 (28.0-62.0) fl RDW Coeff of Sindy 12 (11.0-15.0) % Plt Count 202 (150-400) K/uL MPV 9.60 (7.40-12.00) fL Neut % (Auto) 66.9 (48.0-80.0) % Lymph % (Auto) 24.7 (16.0-40.0) % [place] % (Auto) 8.0 (0.0-15.0) % Eos % (Auto) 0.3 (0.0-7.0) % Baso % (Auto) 0.1 (0.0-1.5) % Neut # (Auto) 4.7 (1.4-5.7) K/uL Lymph # (Auto) 1.8 (0.6-2.4) K/uL [place] # (Auto) 0.6 (0.0-0.8) K/uL Eos # (Auto) 0.0 (0.0-0.7) K/uL Baso # (Auto) 0.0 (0.0-0.1) K/uL Nucleated RBC % 0.0 /100WBC Nucleated RBCs # 0 K/uL Sodium 139 (136-148) mmol/L Potassium 4.0 (3.5-5.1) mmol/L Chloride 103 (98-107) mmol/L Carbon Dioxide 26.8 (21.0-32.0) mmol/L BUN 12 (7.0-18.0) mg/dL Creatinine 1.2 (0.8-1.3) mg/dL Est Cr Clr Drug Dosing 91.65 mL/min Estimated GFR (MDRD) > 60.0 ml/min Glucose 93 (74-106) mg/dL Calcium 7.9 L (8.5-10.1) mg/dL Total Bilirubin 0.9 (0.2-1.0) mg/dL AST 26 (15-37) IU/L ALT 38 (14-63) IU/L Alkaline Phosphatase 69 (46-116) U/L Total Protein 7.0 (6.4-8.2) g/dL Albumin 3.8 (3.4-5.0) g/dL Globulin 3.2 (2.6-4.0) g/dL Albumin/Globulin Ratio 1.2 (0.9-1.6) Med Orders - Current: Current Medications Buspirone HCl (Buspar) 5 mg PO DAILY [facility] Last Admin: 09/02/19 09:33 Dose: 5 mg Folic Acid (Folic Acid) 1 mg PO BEDTIME [facility] Last Admin: 09/01/19 22:42 Dose: 1 mg Sodium Chloride (Normal Saline) 1,000 mls @ 125 mls/hr IV ASDIRECTED [facility] Last Admin: 09/02/19 06:28 Dose: 125 mls/hr Pantoprazole Sodium 40 mg/ (Sodium Chloride) 10 mls @ 300 mls/hr IV Q12H [facility] Last Admin: 09/02/19 11:13 Dose: 300 mls/hr Lorazepam (Ativan) 0 mg IVPUSH Q4H PRN; Protocol PRN Reason: Agitation Last Admin: 09/02/19 07:28 Dose: 1 mg Ondansetron HCl (Zofran) 4 mg IVPUSH Q4H PRN PRN Reason: Nausea Last Admin: 09/02/19 06:28 Dose: 4 mg Paroxetine HCl (Paxil) 20 mg PO DAILY [facility] Last Admin: 09/02/19 09:33 Dose: 20 mg Thiamine HCl (Vitamin B-1) 100 mg PO BEDTIME [facility] Discontinued Medications Lactated Ringer's (Ringers, Lactated) 1,000 mls @ 999 mls/hr IV .BOLUS ONE Stop: 09/01/19 20:59 Last Admin: 09/01/19 19:59 Dose: 999 mls/hr Pantoprazole Sodium 40 mg/ (Sodium Chloride) 10 mls @ 300 mls/hr IV Q24H [facility] Last Admin: 09/01/19 22:42 Dose: 300 mls/hr Influenza Virus Vaccine (Fluzone Quad [id number] Syringe) 60 mcg IM .ONCE ONE Stop: 09/02/19 10:01 Last Admin: 09/02/19 10:45 Dose: 60 mcg Ondansetron HCl (Zofran) 4 mg IVPUSH ONETIME ONE Stop: 09/01/19 19:53 Last Admin: 09/01/19 19:57 Dose: 4 mg
[2019-09-02 12:41] VITALS: BP 166/97; PULSE 93
[2019-09-02] MEDS ORDERED: Thiamine 100 MG Tab PO SCH (21:00)
== END 2019-09-02 12:30 | disposition home or self-care (01) ==
LOC: MW.ED 18:43 → MW.MS 19:13
PROVIDERS: ADMIT Internal Medicine; ATTEND Internal Medicine
DX: K29.20 Alcoholic gastritis without bleeding (principal); F10.10 Alcohol abuse, uncomplicated; E86.0 Dehydration; F41.9 Anxiety disorder, unspecified; F32.9 Major depressive disorder, single episode, unspecified; Z87.891 Personal history of nicotine dependence; Z13.9 Encounter for screening, unspecified; F17.210 Nicotine dependence, cigarettes, uncomplicated; Z91.19 Patient's noncompliance with other medical treatment and regimen; Z79.899 Other long term (current) drug therapy
CPT/HCPCS: 36415; 80053; 80305; 80320; 85025; 90471; 90686; 96361; 96374; 96375; 96376; 99284; 99285; A9270; C9113; G0378; J2060; J2405; J7040; J7050; J7120; 99283; G0008; G0480

== ENCOUNTER 2020-07-28 09:20 | Emergency (ER) | payer SELFPAY ==
[2020-07-28] MEDS ORDERED: Sodium Chloride 0.9% 1,000 ML IV ONE (09:38)
[2020-07-28] MEDS ORDERED: LORazepam 2 MG/ML SDV IVPUSH ONE (09:38)
[2020-07-28] MEDS ORDERED: Sodium Chloride 0.9% 10 ML Syringe FLUSH PRN (09:38)
[2020-07-28] MEDS ORDERED: Pantoprazole 40 MG in Sodium Chloride 0.9% 10 ML IV ONE (09:38)
[2020-07-28] MEDS ORDERED: Sodium Chloride 0.9% 2.5 ML Syringe FLUSH PRN (09:38)
[2020-07-28] MEDS ORDERED: Ondansetron 4 MG/2 ML SDV IVPUSH ONE (09:38)
--- NOTE | 2020-07-28 09:43 | EDM.PDOC ---
ED HPI GENERAL MEDICAL PROBLEM - General Chief Complaint: Gastrointestinal Problem Stated Complaint: VOMITING Time Seen by Provider: 07/28/20 09:23 Source of Information: Reports: Patient History Limitations: Reports: No Limitations - History of Present Illness INITIAL COMMENTS - FREE TEXT/NARRATIVE: History of present illness: [Patient is 30-year-old male who is been binge drinking now for the last few days. His last drink was yesterday, about 24 hours ago. Previous to that he had been 9 months sober. He has a history of alcohol abuse and dependency, was seen a year ago for a similar relapse. Denies history of withdrawal seizures or delirium tremens. States that he has been suffering nausea vomiting, heart palpitations, trouble sleeping, occasional bloody vomitus, and feeling anxious. Denies chest pain or shortness of breath. Denies fever and chills. Denies any recent trauma or falls. Denies focal neurological deficits. Denies blurry vision or headache. Has not taken any medicine to try and relieve his symptoms at home prior to arrival.] Review of systems: As per history of present illness and below otherwise all systems reviewed and negative. Past medical history: As per history of present illness and as reviewed below otherwise noncontributory. Surgical history: As per history of present illness and as reviewed below otherwise noncontribu tory. Social history: Hx of alcohol abuse. Family history: As per history of present illness and as reviewed below otherwise noncontributory. Physical exam: General: Awake, alert, no acute distress, A&O X3. HEENT: Atraumatic, normocephalic, pupils reactive, negative for conjunctival pallor or scleral icterus, mucous membranes moist, throat clear, neck supple, nontender, trachea midline. Lungs: Clear to auscultation, breath sounds equal bilaterally, chest nontender. Heart: tachycardic, normal S1S2, no JVD. Abdomen: Soft, nondistended, nontender. Negative for masses or hepatosplenomegaly. Negative for costovertebral tenderness. Pelvis: Stable nontender. Genitourinary: Deferred. Rectal: Deferred. Extremities: Atraumatic, no edema, Neurovascular unremarkable. Neuro: Motor and sensory grossly intact throughout. Exam nonfocal. Diagnostics: [] Therapeutics: [] Impression: [] Plan: [] Definitive disposition and diagnosis as appropriate pending reevaluation and review of above. Abdominal Pain Score (Numeric/FACES): 5 - Related Data Allergies Allergy/AdvReac Type Severity Reaction Status Date / Time No Known Allergies Allergy Verified 07/28/20 09:33 Home Meds: Home Meds PARoxetine [Paxil] 20 mg PO DAILY 08/31/19 [History] busPIRone [Buspar] 5 mg PO DAILY 08/31/19 [History] Metoclopramide HCl [Reglan] 5 mg PO TID PRN 2 Days #6 tablet 09/01/19 [Rx] traZODone HCl [Trazodone HCl] 50 mg PO BEDTIME 09/01/19 [History] Ondansetron [Zofran ODT] 4 mg PO Q4H PRN #15 tab.dis 09/02/19 [Rx] Ondansetron [Zofran ODT] 4 mg PO Q6H PRN #10 tab.dis 07/28/20 [Rx] chlordiazePOXIDE [Librium] 10 mg PO QID #12 cap 07/28/20 [Rx] Past Medical History - Past Health History Medical/Surgical History: Denies Medical/Surgical History HEENT History: Reports: None Cardiovascular History: Reports: None, Other (See Below) Other Cardiovascular History: palpitations related to alcohol abuse Respiratory History: Reports: None Gastrointestinal History: Reports: None Genitourinary History: Reports: None Musculoskeletal History: Reports: None Neurological History: Reports: None Psychiatric History: Reports: Anxiety, Depression Endocrine/Metabolic History: Reports: None Hematologic History: Reports: None Immunologic History: Reports: None Oncologic (Cancer) History: Reports: None Dermatologic History: Reports: None - Infectious Disease History Infectious Disease History: Reports: Chicken Pox - Past Surgical History Head Surgeries/Procedures: Reports: None HEENT Surgical History: Reports: None Cardiovascular Surgical History: Reports: None Respiratory Surgical History: Reports: None GI Surgical History: Reports: Appendectomy, Hernia, Inguinal, Lysis of Adhesions Male Surgical History: Reports: None Endocrine Surgical History: Reports: None Neurological Surgical History: Reports: None Musculoskeletal Surgical History: Reports: None Oncologic Surgical History: Reports: None Dermatological Surgical History: Reports: None Social & Family History - Family History Family Medical History: Noncontributory Psychiatric: Reports: Other (See Below) Other Psychiatric Family History: family hx of alcohol abuse - Caffeine Use Caffeine Use: Reports: Energy Drinks Caffeine Use Comment: 1 daily - Alcohol Use Alcohol Use History: Yes Alcohol Use Frequency: Binges ED ROS GENERAL - Review of Systems Review Of Systems: Comprehensive ROS is negative, except as noted in HPI. ED EXAM, GI/ABD - Physical Exam Exam: See Below (see h and p) EKG INTERPRETATION EKG Date: 07/28/20 Time: 09:48 Rhythm: NSR Rate (Beats/Min): 108 [place]: Normal P-Wave: Present QRS: Normal ST-T: Normal QT: Normal EKG Interpretation Comments: sinus tach Course - Vital Signs Text/Narrative:: Patient feels comfortable going home. He is not actively suicidal. States that he feels like his alcohol addiction. I offered him admission, he declined. He is mildly tachycardic, otherwise he feels better, palpitations have resolved, nausea has improved, overall symptoms have improved. I agreed to prescribe him some Librium along with Zofran for him to manage through the symptoms for the next couple of days. He has no active chest pain or shortness of breath. No further episodes of vomiting here. Other than mild tachycardia, vital signs are stable, he is in no acute distress, nontoxic in appearance. Return precautions provided otherwise he was stable and well-appearing at discharge. Last Recorded V/S: Last Vital Signs Temp 36.3 C 07/28/20 09:34 Pulse 116 H 07/28/20 09:34 Resp 18 07/28/20 09:34 BP 164/99 H 07/28/20 09:34 Pulse Ox 98 07/28/20 09:34 - Orders/Labs/Meds Orders: Active Orders 24 hr Category Date Time Status EKG 12 Lead [EKG Documentation Completion] [RC] STAT Care 07/28/20 09:39 Active Sodium Chloride 0.9% [Saline Flush] Med 07/28/20 09:38 Active 10 ml FLUSH ASDIRECTED PRN Sodium Chloride 0.9% [Saline Flush] Med 07/28/20 09:38 Active 2.5 ml FLUSH ASDIRECTED PRN Saline Lock Insert [OM.PC] Stat Oth 07/28/20 09:38 Ordered Medication Orders Sodium Chloride (Saline Flush) 10 ml FLUSH ASDIRECTED PRN PRN Reason: Keep Vein Open Last Admin: 09/18/20 09:53 Dose: 10 ml Documented by: LUCY Sodium Chloride (Saline Flush) 2.5 ml FLUSH ASDIRECTED PRN PRN Reason: Keep Vein Open Last Admin: 07/28/20 09:53 Dose: 2.5 ml Documented by: LUCY Labs: Laboratory Tests 07/28/20 07/28/20 Range/Units 10:00 10:00 WBC 11.00 (4.0-11.0) K/uL RBC 5.08 (4.50-5.90) M/uL Hgb 15.4 (13.0-17.0) g/dL Hct 45.2 (38.0-50.0) % MCV 89.0 (80.0-98.0) fL MCH 30.3 (27.0-32.0) pg MCHC 34.1 (31.0-37.0) g/dL RDW Std Deviation 41.9 (28.0-62.0) fl RDW Coeff of Sindy 13 (11.0-15.0) % Plt Count 251 (150-400) K/uL MPV 9.60 (7.40-12.00) fL Neut % (Auto) 85.1 H (48.0-80.0) % Lymph % (Auto) 9.1 L (16.0-40.0) % Burke % (Auto) 5.6 (0.0-15.0) % Eos % (Auto) 0.0 (0.0-7.0) % Baso % (Auto) 0.2 (0.0-1.5) % Neut # (Auto) 9.4 H (1.4-5.7) K/uL Lymph # (Auto) 1.0 (0.6-2.4) K/uL Burke # (Auto) 0.6 (0.0-0.8) K/uL Eos # (Auto) 0.0 (0.0-0.7) K/uL Baso # (Auto) 0.0 (0.0-0.1) K/uL Nucleated RBC % 0.0 /100WBC Nucleated RBCs # 0 K/uL Sodium 138 (136-148) mmol/L Potassium 3.9 (3.5-5.1) mmol/L Chloride 96 L (98-107) mmol/L Carbon Dioxide 22.8 (21.0-32.0) mmol/L BUN 12 (7.0-18.0) mg/dL Creatinine 1.1 (0.8-1.3) mg/dL Est Cr Clr Drug Dosing 99.09 mL/min Estimated GFR (MDRD) > 60.0 ml/min Glucose 74 (74-106) mg/dL Calcium 9.0 (8.5-10.1) mg/dL Total Bilirubin 0.7 (0.2-1.0) mg/dL AST 24 (15-37) IU/L ALT 24 (14-63) IU/L Alkaline Phosphatase 72 (46-116) U/L Troponin I < 0.050 (0.000-0.056) ng/mL Total Protein 8.1 (6.4-8.2) g/dL Albumin 4.5 (3.4-5.0) g/dL Globulin 3.6 (2.6-4.0) g/dL Albumin/Globulin Ratio 1.2 (0.9-1.6) Ethyl Alcohol 21 mg/dL Meds: Medications Generic Name Dose Route Start Last Admin Trade Name Freq PRN Reason Stop Dose Admin Sodium Chloride 10 ml 07/28/20 09:38 07/28/20 09:53 Saline Flush FLUSH 10 ml ASDIRECTED PRN Administration Keep Vein Open Sodium Chloride 2.5 ml 07/28/20 09:38 07/28/20 09:53 Saline Flush FLUSH 2.5 ml ASDIRECTED PRN Administration Keep Vein Open Discontinued Medications Generic Name Dose Route Start Last Admin Trade Name Freq PRN Reason Stop Dose Admin Sodium Chloride 1,000 mls @ 999 mls/hr 07/28/20 09:38 07/28/20 09:53 Normal Saline IV 07/28/20 10:38 999 mls/hr .Bolus ONE Administration Pantoprazole Sodium 40 mg/ 10 mls @ 300 mls/hr 07/28/20 09:38 07/28/20 09:52 Sodium Chloride IV 07/28/20 09:39 300 mls/hr NOW ONE Administration Lorazepam 1 mg 07/28/20 09:38 07/28/20 09:53 Ativan IVPUSH 07/28/20 09:39 1 mg ONETIME ONE Administration Ondansetron HCl 4 mg 07/28/20 09:38 07/28/20 09:53 Zofran IVPUSH 07/28/20 09:39 4 mg ONETIME ONE Administration Departure - Departure Time of Disposition: 10:59 Disposition: Home, Self-Care 01 Condition: Good Clinical Impression: Alcohol dependence with withdrawal Nausea and vomiting Qualifiers: Vomiting type: unspecified Vomiting Intractability: non-intractable Qualified Code(s): R11.2 - Nausea with vomiting, unspecified - Discharge Information Prescriptions: chlordiazePOXIDE [Librium] 10 mg PO QID #12 cap Ondansetron [Zofran ODT] 4 mg PO Q6H PRN #10 tab.dis PRN Reason: Nausea Instructions: Alcohol Withdrawal Syndrome, [id number] Referrals: PCP,None [Primary Care Provider] - Forms: ED Department Discharge Additional Instructions: Follow-up with primary care doctor. Use the resources provided for outpatient alcohol treatment and dependence. Return to the ER with any new or worsening symptoms. The following information is given to patients seen in the emergency department who are being discharged to home. This information is to outline your options for follow-up care. We provide all patients seen in our emergency department with a follow-up referral. The need for follow-up, as well as the timing and circumstances, are variable depending upon the specifics of your emergency department visit. If you don't have a primary care physician on staff, we will provide you with a referral. We always advise you to contact your personal physician following an emergency department visit to inform them of the circumstance of the visit and for follow-up with them and/or the need for any referrals to a consulting specialist. The emergency department will also refer you to a specialist when appropriate. This referral assures that you have the opportunity for follow-up care with a specialist. All of these measure are taken in an effort to provide you with optimal care, which includes your follow-up. Under all circumstances we always encourage you to contact your private physician who remains a resource for coordinating your care. When calling for follow-up care, please make the office aware that this follow-up is from your recent emergency room visit. If for any reason you are refused follow-up, please contact the [facility] Emergency Department at and asked to speak to the emergency department charge nurse. Sepsis Event Note (ED) - Evaluation Sepsis Screening Result: No Definite Risk - Focused Exam Vital Signs: Vital Signs Temp Pulse Resp BP Pulse Ox 07/28/20 09:34 36.3 C 116 H 18 164/99 H 98 - My Orders Last 24 Hours: My Active Orders 07/28/20 09:38 Sodium Chloride 0.9% [Saline Flush] 10 ml FLUSH ASDIRECTED PRN Sodium Chloride 0.9% [Saline Flush] 2.5 ml FLUSH ASDIRECTED PRN Saline Lock Insert [OM.PC] Stat 07/28/20 09:39 EKG 12 Lead [EKG Documentation Completion] [RC] STAT - Assessment/Plan Last 24 Hours: My Active Orders 07/28/20 09:38 Sodium Chloride 0.9% [Saline Flush] 10 ml FLUSH ASDIRECTED PRN Sodium Chloride 0.9% [Saline Flush] 2.5 ml FLUSH ASDIRECTED PRN Saline Lock Insert [OM.PC] Stat 07/28/20 09:39 EKG 12 Lead [EKG Documentation Completion] [RC] STAT
[2020-07-28 10:45] LABS: BLOOD UREA NITROGEN,BUN 12 mg/dL (7.0-18.0); CARBON DIOXIDE,CO2 22.8 mmol/L (21.0-32.0); CHLORIDE,CL 96 mmol/L (98-107); GLUCOSE RANDOM 74 mg/dL (74-106); POTASSIUM,K 3.9 mmol/L (3.5-5.1); SODIUM,NA 138 mmol/L (136-148)
[2020-07-28 12:22] VITALS: BP 149/92; PULSE 109
== END 2020-07-28 11:21 | disposition home or self-care (01) ==
LOC: MW.ED 09:20
DX: R11.2 Nausea with vomiting, unspecified (principal); F10.239 Alcohol dependence with withdrawal, unspecified; R00.2 Palpitations; F41.9 Anxiety disorder, unspecified; F32.9 Major depressive disorder, single episode, unspecified; Z90.49 Acquired absence of other specified parts of digestive tract; Y90.1 Blood alcohol level of 20-39 mg/100 ml; Z79.899 Other long term (current) drug therapy
CPT/HCPCS: 36415; 80053; 80307; 84484; 85025; 93005; 96361; 96374; 96375; 99284; C9113; J2060; J2405; J7030; J7050; 99283

== ENCOUNTER 2021-02-07 04:07 | Observation (INO) | payer SELFPAY ==
[2021-02-07] MEDS ORDERED: Ondansetron 4 MG/2 ML SDV IVPUSH ONE ×2 (05:06→08:53)
[2021-02-07] MEDS ORDERED: Pantoprazole 40 MG in Sodium Chloride 0.9% 10 ML IV ONE (05:06)
[2021-02-07] MEDS ORDERED: Sodium Chloride 0.9% 1,000 ML IV ONE ×2 (05:06→05:16)
--- NOTE | 2021-02-07 05:12 | EDM.PDOC ---
<Maury Dominguez - Last Filed: 02/07/21 07:04> ED HPI GENERAL MEDICAL PROBLEM - General Chief Complaint: Behavioral/Psych Stated Complaint: SHORTNESS OF BREATH, SUICIDAL THOUGHTS Time Seen by Provider: 02/07/21 07:00 - History of Present Illness INITIAL COMMENTS - FREE TEXT/NARRATIVE: HISTORY AND PHYSICAL: History of present illness: This is a 31-year-old gentleman with a history significant hypertension and depression as well as a history of alcohol use disorder who presents to the ER today secondary to suicidal ideation. Patient reports that he had a gun and was going to have plans of killing himself with his gun earlier today. Patient reports that he is extremely upset about his alcohol addiction and alcohol use. Patient reports that he had approximately 140 days of sobriety until approxim ately 10 days ago when he started drinking alcohol again. Patient reports that he has been feeling well has been having a lot of abdominal discomfort. Patient reports that today he has had to 3 episodes of blood in his vomit. Patient denies any recent fevers, shakes, chills, dysuria, frequency, urgency. Patient denies any melena or bright red blood per rectum. Patient denies any chest discomfort. Patient denies any prior history of suicidal ideation or suicide attempts in the past. Patient does admit to a significant mount of alcohol use in the past. Patient denies any drug use. Patient denies any history of diabetes, liver, lung, kidney problems that he is aware of. Patient has no known drug allergies Review of systems: As per history of present illness and below otherwise all systems reviewed and negative. Past medical history: As per history of present illness and as reviewed below otherwise noncontributory. Surgical history: As per history of present illness and as reviewed below otherwise noncontributory. Social history: No reported history of drug Family history: As per history of present illness and as reviewed below otherwise noncontributory. Physical exam: This patient was seen and evaluated during the 2019 SARS-CoV-2 novel coronavirus pandemic period. Community viral transmission is ongoing at time of this encounter and the emergency department is operating under pandemic response procedures. Constitutional: Patient is oriented to person, place, and time. Appears well- developed and well-nourished. No distress. HEENT: Moist mucous membranes Head: Normocephalic and atraumatic Eyes: Right eye exhibits no discharge. Left eye exhibits no discharge. No scleral icterus Neck: Normal range of motion. No tracheal deviation present. Cardiovascular: Normal rate and regular rhythm. Pulmonary: Effort normal, no respiratory distress. Abd: Soft, nondistended, no rebound/guarding, no psoas or obturator signs, no tenderness at Mcberney's point, no Barton's sign. Pt does not present with an exam that would be consistent with an acute surgical abdomen at this time. Positive tenderness palpation of the midepigastric region. Musculoskeletal: Normal range of motion Neurologic: Alert and oriented to person, place and time. Skin: Lucien, warm and dry. Psychiatric: Normal mood and affect. Behavior is normal. Patient currently is still complaining of depression and was still having suicidal ideations. Nursing note and vital signs have been reviewed Diagnostics: CBC, CMP, lipase, salicylate, acetaminophen, EKG Therapeutics: 2 L NSS wide open Protonix 40 mg IV Zofran 4 mg IV Assessment and plan: This is a 31-year-old gentleman who presents ER today secondary to having suicidal ideation with intent of shooting himself with a gun. Patient reports that he was extremely upset over binge drinking over the last couple weeks. Patient reports that he had been sober for approximately 140 days prior to initiating alcohol use again. Patient reports that he has been drinking approximately a liter of titos vodka daily. Aside from patient being suicidal and having intent to shoot himself with a gun, patient was also complaining of diffuse body aches, muscle aches, abdominal pain with associated vomiting of blood x2. Patient reports that his general body aches, abdominal pain and vomiting blood was a result of his alcohol use and is extremely upset about restarting alcohol again. Patient reports he does have a history of depression but is never tried to harm himself in the past. Upon arrival to the ED, the patient was noted to be tachycardic. Patient's EKG revealed sinus tachycardia with a heart rate of approximately 120. Patient does have alcohol on his breath. Patient's tachycardia is unlikely secondary to alcohol withdrawal and more likely secondary to dehydration with possibility of anemia from his hematemesis. In the ED, we will evaluate the patient's mental health labs including a CBC, C MP, acetaminophen level, salicylate level, urine drug screen, EKG. In addition to these labs, will also evaluate his abdominal pain and hematemesis, we will will also evaluate the patient's lipase, we will check his PT PTT. Patient has received Protonix in the ED as well as Zofran to assist with his nausea. Patient be given 2 L of NSS and will be reassessed for medical clearance at that time. 6:22 AM: Patient's labs are significant for white count of 17.3. Patient's INR and PTT are normal. Patient has a bicarb of 15.3 resulting in a anion gap of 22. Patient's lipase is within normal limits. Patient has a hemoglobin of 17.2. Patient's rectal exam reveals heme-negative green stool. Given the patient's elevated WBC count, his bicarb of 15.3, his anion gap of 22, we will likely need to hydrate him and repeat his labs. I believe that his elevated anion gap and low bicarb level may be related to a degree of alcoholic ketoacidosis. After 1 L of NSS, the patient's heart rate had improved to 110 bpm. Patient's alcohol level was 157. Patient's coronavirus test is negative. 7 AM: Care signed over to oncoming physician for reevaluation of repeat labs and final disposition. Definitive disposition and diagnosis as appropriate pending reevaluation and review of above. abdomen Pain Score (Numeric/FACES): 5 - Related Data Allergies Allergy/AdvReac Type Severity Reaction Status Date / Time No Known Allergies Allergy Verified 02/07/21 04:20 Home Meds: Home Meds PARoxetine [Paxil] 20 mg PO DAILY 08/31/19 [History] traZODone HCl [Trazodone HCl] 50 mg PO BEDTIME 09/01/19 [History] chlordiazePOXIDE [Librium] 10 mg PO QID #12 cap 07/28/20 [Rx] Past Medical History - Past Health History Medical/Surgical History: Denies Medical/Surgical History HEENT History: Reports: None Cardiovascular History: Reports: Other (See Below) Other Cardiovascular History: palpitations related to alcohol abuse Respiratory History: Reports: None Gastrointestinal History: Reports: None Genitourinary History: Reports: None Musculoskeletal History: Reports: None Neurological History: Reports: None Psychiatric History: Reports: Anxiety, Depression, Suicidal Ideation Endocrine/Metabolic History: Reports: None Insulin Pump Model and Beverage Distiller: None Hematologic History: Reports: None Immunologic History: Reports: None Oncologic (Cancer) History: Reports: None Dermatologic History: Reports: None - Infectious Disease History Infectious Disease History: Reports: Chicken Pox - Past Surgical History Head Surgeries/Procedures: Reports: None HEENT Surgical History: Reports: None Cardiovascular Surgical History: Reports: None Respiratory Surgical History: Reports: None GI Surgical History: Reports: Appendectomy, Hernia, Inguinal, Lysis of Adhesions Male Surgical History: Reports: None Endocrine Surgical History: Reports: None Neurological Surgical History: Reports: None Musculoskeletal Surgical History: Reports: None Oncologic Surgical History: Reports: None Dermatological Surgical History: Reports: None Social & Family History - Family History Family Medical History: No Pertinent Family History Psychiatric: Reports: Other (See Below) Other Psychiatric Family History: family hx of alcohol abuse - Caffeine Use Caffeine Use: Reports: Energy Drinks Caffeine Use Comment: 1 daily - Recreational Drug Use Recreational Drug Use: No ED ROS GENERAL - Review of Systems Review Of Systems: See Below ED EXAM, GENERAL - Physical Exam Exam: See Below #1 Interpretation EKG Interpretation Comments: EKG: As interpreted by ER physician: Alberto: Nonspecific ST-T wave abnormalities Normal axis No evidence of ST elevation MO Sinus tachycardia with a heart rate of 112 Departure - Departure Disposition: Refer to Observation Clinical Impression: Alcohol dependence with withdrawal, Gastritis, Alcohol abuse, Suicidal ideation - Discharge Information Referrals: PCP,None [Primary Care Provider] - Forms: ED Department Discharge Sepsis Event Note (ED) - Evaluation Sepsis Screening Result: No Definite Risk <Felix Hernandez - Last Filed: 02/07/21 08:37> ED HPI GENERAL MEDICAL PROBLEM - History of Present Illness INITIAL COMMENTS - FREE TEXT/NARRATIVE: Patient was signed out to me by Dr. Dominguez pending reevaluation and repeat laboratory analysis at 7 AM In short this is a 31-year-old man with a past medical history of alcohol use who was clean for some time and then went on a 2-week alcohol binge drinking approximately 1 L of vodka per day. Prior to arrival the patient was feeling upset about his alcohol use and had suicidal ideation with a plan to shoot himself. He stated that he had a gun in his hand but given that he was feeling so bad he came to the hospital. He states that he has had couple episodes of bloody vomit but has not had any since this morning. He denied any other sym ptoms. Guaiac was negative. On my reevaluation the patient was tachycardic and mildly hypertensive he did not appear to be anxious and was cooperative. On my reevaluation the patient denied any current suicidal ideation but states that he may have the same thoughts in the future. At the time of my reevaluation the patient's laboratory analysis were pending. On examination the patient did have mild tongue fasciculations and hand tremors but did not appear to be anxious. We will provide the patient with 1 L of D5 normal saline, banana bag, and 5 mg of Versed given concern for possible mild withdrawal Labs reviewed which did reveal a leukocytosis of 17.31 and a normal hemoglobin of 17.2. CMP revealed anion gap metabolic acidosis with bicarbonate 15.3 likely due to alcoholic ketoacidosis. Serum alcohol level was 157. Covid was negative. Laboratory: CBC reveals a leukocytosis of 19.33 without any left shift likely due to stress response. Hemoglobin is decreased to 15.9 and 45.7 likely dilutional from 2 L of normal saline that were given. CMP reveals anion gap of 23 with metabolic acidosis of 11.9 which is decreased from prior. There is mild hyperglycemia at 66. At this time given that there is mild withdraw and the acidosis seems to be worsening I did have a discussion with the patient regarding admission. He was amenable to this plan. I contacted Dr. العلي for admission she accepted admission. DISPOSITION: The patient was admitted to the hospital in stable condition CONDITION: Fair PROCEDURES: None FINAL IMPRESSION(S)/DIAGNOSES: 1. Acute alcoholic ketoacidosis 2. Acute alcohol intoxication 3. Acute mild alcohol withdrawal 4. Acute suicidal ideation 5. Acute bloody emesis likely secondary to gastritis secondary to alcohol use disorder Felix Hernandez M.D. Course - Vital Signs Last Recorded V/S: Last Vital Signs Temp 36.8 C 02/07/21 04:20 Pulse 118 H 02/07/21 08:30 Resp 18 02/07/21 08:30 BP 131/83 02/07/21 08:30 Pulse Ox 96 02/07/21 08:30 - Orders/Labs/Meds Orders: Active Orders 24 hr Category Date Time Status Admission Status [Patient Status] [ADT] Stat ADT 02/07/21 08:29 Active Communication Order [RC] STAT Care 02/07/21 04:57 Active EKG Documentation Completion [RC] STAT Care 02/07/21 04:45 Active Dextrose 5%-0.9% NaCl [Dextrose 5%-Normal Saline] 1,000 Med 02/07/21 08:15 Active ml IV ASDIRECTED MVI, Adult with Vitamin K [Infuvite Adult] 10 ml Med 02/07/21 08:18 Active Thiamine [Vitamin B-1] 100 mg Folic Acid 1 mg Sodium Chloride 0.9% [Normal Saline] 1,000 ml IV ONETIME Medication Orders Dextrose/Sodium Chloride (Dextrose 5%-Normal Saline) 1,000 mls @ 999 mls/hr IV ASDIRECTED KURT Last Admin: 02/07/21 08:18 Dose: 999 mls/hr Documented by: JACKY Multivitamins/Minerals 10 ml/Thiamine HCl 100 mg/ Folic Acid 1 mg/ Sodium Chloride 1,011.2 mls @ 999 mls/hr IV ONETIME ONE Stop: 02/07/21 09:18 Labs: Laboratory Tests 02/07/21 02/07/21 02/07/21 Range/Units 04:45 04:55 04:55 WBC 17.31 H (4.0-11.0) K/uL RBC 5.59 (4.50-5.90) M/uL Hgb 17.2 H (13.0-17.0) g/dL Hct 48.7 (38.0-50.0) % MCV 87.1 (80.0-98.0) fL MCH 30.8 (27.0-32.0) pg MCHC 35.3 (31.0-37.0) g/dL RDW Std Deviation 37.9 (28.0-62.0) fl RDW Coeff of Sindy 12 (11.0-15.0) % Plt Count 274 (150-400) K/uL MPV 9.60 (7.40-12.00) fL Neut % (Auto) 83.1 H (48.0-80.0) % Lymph % (Auto) 12.5 L (16.0-40.0) % Mcduffie % (Auto) 4.3 (0.0-15.0) % Eos % (Auto) 0.0 (0.0-7.0) % Baso % (Auto) 0.1 (0.0-1.5) % Neut # (Auto) 14.4 H (1.4-5.7) K/uL Lymph # (Auto) 2.2 (0.6-2.4) K/uL Mcduffie # (Auto) 0.7 (0.0-0.8) K/uL Eos # (Auto) 0.0 (0.0-0.7) K/uL Baso # (Auto) 0.0 (0.0-0.1) K/uL Nucleated RBC % 0.0 /100WBC Nucleated RBCs # 0 K/uL INR APTT (18.6-31.3) SEC Sodium 130 L (136-148) mmol/L Potassium 4.5 (3.5-5.1) mmol/L Chloride 93 L (98-107) mmol/L Carbon Dioxide 15.3 L (21.0-32.0) mmol/L BUN 15 (7.0-18.0) mg/dL Creatinine 1.3 (0.8-1.3) mg/dL Est Cr Clr Drug Dosing 83.09 mL/min Estimated GFR (MDRD) > 60.0 ml/min Glucose 77 (74-106) mg/dL Calcium 8.2 L (8.5-10.1) mg/dL Magnesium 2.1 (1.8-2.4) mg/dL Total Bilirubin 0.8 (0.2-1.0) mg/dL AST 51 H (15-37) IU/L ALT 57 (14-63) IU/L Alkaline Phosphatase 99 (46-116) U/L Total Protein 8.5 H (6.4-8.2) g/dL Albumin 4.2 (3.4-5.0) g/dL Globulin 4.3 H (2.6-4.0) g/dL Albumin/Globulin Ratio 1.0 (0.9-1.6) Lipase (73-393) U/L TSH 3rd Generation 0.67 (0.36-3.74) uIU/mL Urine Color YELLOW Urine Appearance HAZY Urine pH 5.5 (5.0-8.0) Ur Specific [place] >= 1.030 (1.001-1.035) Urine Protein 100 H (NEGATIVE) mg/dL Urine Glucose (UA) NEGATIVE (NEGATIVE) mg/dL Urine Ketones >=80 (NEGATIVE) mg/dL Urine Occult Blood MODERATE H (NEGATIVE) Urine Nitrite NEGATIVE (NEGATIVE) Urine Bilirubin NEGATIVE (NEGATIVE) Urine Urobilinogen 0.2 (<2.0) EU/dL Ur Leukocyte Esterase NEGATIVE (NEGATIVE) U Hyaline Cast (Auto) 8-12 (0-2/LPF) Urine RBC 5-8 (0-2/HPF) Urine WBC 1-3 (0-5/HPF) Ur Epithelial Cells OCCASIONAL (NONE-FEW) Amorphous Sediment LIGHT (NEGATIVE) Urine Bacteria FEW (NEGATIVE) Urine Mucus MODERATE (NONE-MOD) Salicylates 1.7 (0-20) mg/dL Urine Opiates Screen (NEGATIVE) Ur Oxycodone Screen (NEGATIVE) Urine Methadone Screen (NEGATIVE) Acetaminophen <2.0 ug/mL Ur Barbiturates Screen (NEGATIVE) Ur Phencyclidine Scrn (NEGATIVE) Ur Amphetamine Screen (NEGATIVE) U Methamphetamines Scrn (NEGATIVE) U Benzodiazepines Scrn (NEGATIVE) U Cocaine Metab Screen (NEGATIVE) U Marijuana (THC) Screen (NEGATIVE) Ethyl Alcohol 157 mg/dL SARS-CoV-2 RNA (KOLE) (NEGATIVE) 02/07/21 02/07/21 02/07/21 Range/Units 04:55 04:55 05:00 WBC (4.0-11.0) K/uL RBC (4.50-5.90) M/uL Hgb (13.0-17.0) g/dL Hct (38.0-50.0) % MCV (80.0-98.0) fL MCH (27.0-32.0) pg MCHC (31.0-37.0) g/dL RDW Std Deviation (28.0-62.0) fl RDW Coeff of Sindy (11.0-15.0) % Plt Count (150-400) K/uL MPV (7.40-12.00) fL Neut % (Auto) (48.0-80.0) % Lymph % (Auto) (16.0-40.0) % Mcduffie % (Auto) (0.0-15.0) % Eos % (Auto) (0.0-7.0) % Baso % (Auto) (0.0-1.5) % Neut # (Auto) (1.4-5.7) K/uL Lymph # (Auto) (0.6-2.4) K/uL Mcduffie # (Auto) (0.0-0.8) K/uL Eos # (Auto) (0.0-0.7) K/uL Baso # (Auto) (0.0-0.1) K/uL Nucleated RBC % /100WBC Nucleated RBCs # K/uL INR 1.06 APTT 22.1 (18.6-31.3) SEC Sodium (136-148) mmol/L Potassium (3.5-5.1) mmol/L Chloride (98-107) mmol/L Carbon Dioxide (21.0-32.0) mmol/L BUN (7.0-18.0) mg/dL Creatinine (0.8-1.3) mg/dL Est Cr Clr Drug Dosing mL/min Estimated GFR (MDRD) ml/min Glucose (74-106) mg/dL Calcium (8.5-10.1) mg/dL Magnesium (1.8-2.4) mg/dL Total Bilirubin (0.2-1.0) mg/dL AST (15-37) IU/L ALT (14-63) IU/L Alkaline Phosphatase (46-116) U/L Total Protein (6.4-8.2) g/dL Albumin (3.4-5.0) g/dL Globulin (2.6-4.0) g/dL Albumin/Globulin Ratio (0.9-1.6) Lipase 98 (73-393) U/L TSH 3rd Generation (0.36-3.74) uIU/mL Urine Color Urine Appearance Urine pH (5.0-8.0) Ur Specific [place] (1.001-1.035) Urine Protein (NEGATIVE) mg/dL Urine Glucose (UA) (NEGATIVE) mg/dL Urine Ketones (NEGATIVE) mg/dL Urine Occult Blood (NEGATIVE) Urine Nitrite (NEGATIVE) Urine Bilirubin (NEGATIVE) Urine Urobilinogen (<2.0) EU/dL Ur Leukocyte Esterase (NEGATIVE) U Hyaline Cast (Auto) (0-2/LPF) Urine RBC (0-2/HPF) Urine WBC (0-5/HPF) Ur Epithelial Cells (NONE-FEW) Amorphous Sediment (NEGATIVE) Urine Bacteria (NEGATIVE) Urine Mucus (NONE-MOD) Salicylates (0-20) mg/dL Urine Opiates Screen (NEGATIVE) Ur Oxycodone Screen (NEGATIVE) Urine Methadone Screen (NEGATIVE) Acetaminophen ug/mL Ur Barbiturates Screen (NEGATIVE) Ur Phencyclidine Scrn (NEGATIVE) Ur Amphetamine Screen (NEGATIVE) U Methamphetamines Scrn (NEGATIVE) U Benzodiazepines Scrn (NEGATIVE) U Cocaine Metab Screen (NEGATIVE) U Marijuana (THC) Screen (NEGATIVE) Ethyl Alcohol mg/dL SARS-CoV-2 RNA (KOLE) NEGATIVE (NEGATIVE) 02/07/21 02/07/21 02/07/21 Range/Units 05:03 07:10 07:10 WBC 19.33 H (4.0-11.0) K/uL RBC 5.20 (4.50-5.90) M/uL Hgb 15.9 (13.0-17.0) g/dL Hct 45.7 (38.0-50.0) % MCV 87.9 (80.0-98.0) fL MCH 30.6 (27.0-32.0) pg MCHC 34.8 (31.0-37.0) g/dL RDW Std Deviation 37.8 (28.0-62.0) fl RDW Coeff of Sindy 12 (11.0-15.0) % Plt Count 225 (150-400) K/uL MPV 9.90 (7.40-12.00) fL Neut % (Auto) 86.2 H (48.0-80.0) % Lymph % (Auto) 8.4 L (16.0-40.0) % [place]duffie % (Auto) 5.3 (0.0-15.0) % Eos % (Auto) 0.0 (0.0-7.0) % Baso % (Auto) 0.1 (0.0-1.5) % Neut # (Auto) 16.7 H (1.4-5.7) K/uL Lymph # (Auto) 1.6 (0.6-2.4) K/uL [place]duffie # (Auto) 1.0 H (0.0-0.8) K/uL Eos # (Auto) 0.0 (0.0-0.7) K/uL Baso # (Auto) 0.0 (0.0-0.1) K/uL Nucleated RBC % 0.0 /100WBC Nucleated RBCs # 0 K/uL INR APTT (18.6-31.3) SEC Sodium 132 L (136-148) mmol/L Potassium 4.8 (3.5-5.1) mmol/L Chloride 97 L (98-107) mmol/L Carbon Dioxide 11.9 L (21.0-32.0) mmol/L BUN 14 (7.0-18.0) mg/dL Creatinine 1.1 (0.8-1.3) mg/dL Est Cr Clr Drug Dosing 98.19 mL/min Estimated GFR (MDRD) > 60.0 ml/min Glucose 66 L (74-106) mg/dL Calcium 7.0 L (8.5-10.1) mg/dL Magnesium (1.8-2.4) mg/dL Total Bilirubin 0.7 (0.2-1.0) mg/dL AST 44 H (15-37) IU/L ALT 48 (14-63) IU/L Alkaline Phosphatase 86 (46-116) U/L Total Protein 7.5 (6.4-8.2) g/dL Albumin 3.6 (3.4-5.0) g/dL Globulin 3.9 (2.6-4.0) g/dL Albumin/Globulin Ratio 0.9 (0.9-1.6) Lipase (73-393) U/L TSH 3rd Generation (0.36-3.74) uIU/mL Urine Color Urine Appearance Urine pH (5.0-8.0) Ur Specific [place] (1.001-1.035) Urine Protein (NEGATIVE) mg/dL Urine Glucose (UA) (NEGATIVE) mg/dL Urine Ketones (NEGATIVE) mg/dL Urine Occult Blood (NEGATIVE) Urine Nitrite (NEGATIVE) Urine Bilirubin (NEGATIVE) Urine Urobilinogen (<2.0) EU/dL Ur Leukocyte Esterase (NEGATIVE) U Hyaline Cast (Auto) (0-2/LPF) Urine RBC (0-2/HPF) Urine WBC (0-5/HPF) Ur Epithelial Cells (NONE-FEW) Amorphous Sediment (NEGATIVE) Urine Bacteria (NEGATIVE) Urine Mucus (NONE-MOD) Salicylates (0-20) mg/dL Urine Opiates Screen NEGATIVE (NEGATIVE) Ur Oxycodone Screen NEGATIVE (NEGATIVE) Urine Methadone Screen NEGATIVE (NEGATIVE) Acetaminophen ug/mL Ur Barbiturates Screen NEGATIVE (NEGATIVE) Ur Phencyclidine Scrn NEGATIVE (NEGATIVE) Ur Amphetamine Screen NEGATIVE (NEGATIVE) U Methamphetamines Scrn NEGATIVE (NEGATIVE) U Benzodiazepines Scrn NEGATIVE (NEGATIVE) U Cocaine Metab Screen NEGATIVE (NEGATIVE) U Marijuana (THC) Screen NEGATIVE (NEGATIVE) Ethyl Alcohol mg/dL SARS-CoV-2 RNA (KOLE) (NEGATIVE) Meds: Medications Generic Name Dose Route Start Last Admin Trade Name Freq PRN Reason Stop Dose Admin Dextrose/Sodium Chloride 1,000 mls @ 999 mls/hr 02/07/21 08:15 02/07/21 08:18 Dextrose 5%-Normal Saline IV 999 mls/hr ASDIRECTED KURT Administration Multivitamins/Minerals 10 ml/ 1,011.2 mls @ 999 mls/hr 02/07/21 08:18 Thiamine HCl 100 mg/ Folic IV 02/07/21 09:18 Acid 1 mg/ Sodium Chloride ONETIME ONE Discontinued Medications Generic Name Dose Route Start Last Admin Trade Name Freq PRN Reason Stop Dose Admin Sodium Chloride 1,000 mls @ 999 mls/hr 02/07/21 05:06 02/07/21 05:33 Normal Saline IV 02/07/21 06:06 999 mls/hr .Bolus ONE Administration Pantoprazole Sodium 40 mg/ 10 mls @ 300 mls/hr 02/07/21 05:06 02/07/21 05:34 Sodium Chloride IV 02/07/21 05:07 300 mls/hr NOW ONE Administration Sodium Chloride 1,000 mls @ 999 mls/hr 02/07/21 05:16 02/07/21 05:33 Normal Saline IV 02/07/21 06:16 999 mls/hr .Bolus ONE Administration Midazolam HCl 5 mg 02/07/21 08:19 02/07/21 08:26 Midazolam 5 Mg/Ml Sdv IVPUSH 02/07/21 08:20 Not Given ONETIME ONE Midazolam HCl 5 mg 02/07/21 08:30 Midazolam 1 Mg/Ml 2 Ml Sdv IVPUSH 02/07/21 08:31 ONETIME ONE Ondansetron HCl 4 mg 02/07/21 05:06 02/07/21 05:34 Ondansetron 4 Mg/2 Ml Sdv IVPUSH 02/07/21 05:07 4 mg ONETIME ONE Administration Departure - Departure Time of Disposition: 08:29 Condition: Fair Sepsis Event Note (ED) - Focused Exam Vital Signs: Vital Signs Temp Pulse Resp BP Pulse Ox 02/07/21 08:30 118 H 18 131/83 96 02/07/21 07:58 120 H 18 151/79 H 96 02/07/21 07:17 115 H 18 135/83 96 02/07/21 06:05 106 H 18 122/71 96 02/07/21 05:30 119 H 18 139/96 H 95 02/07/21 04:45 115 H 18 129/88 93 L 02/07/21 04:20 36.8 C 122 H 18 148/92 H 93 L - My Orders Last 24 Hours: My Active Orders 02/07/21 08:15 Dextrose 5%-0.9% NaCl [Dextrose 5%-Normal Saline] 1,000 ml IV ASDIRECTED 02/07/21 08:18 MVI, Adult with Vitamin K [Infuvite Adult] 10 ml Thiamine [Vitamin B-1] 100 mg Folic Acid 1 mg Sodium Chloride 0.9% [Normal Saline] 1,000 ml IV ONETIME 02/07/21 08:29 Admission Status [Patient Status] [ADT] Stat - Assessment/Plan Last 24 Hours: My Active Orders 02/07/21 08:15 Dextrose 5%-0.9% NaCl [Dextrose 5%-Normal Saline] 1,000 ml IV ASDIRECTED 02/07/21 08:18 MVI, Adult with Vitamin K [Infuvite Adult] 10 ml Thiamine [Vitamin B-1] 100 mg Folic Acid 1 mg Sodium Chloride 0.9% [Normal Saline] 1,000 ml IV ONETIME 02/07/21 08:29 Admission Status [Patient Status] [ADT] Stat
[2021-02-07 05:32] LABS: ACETAMINOPHEN <2.0 ug/mL; BLOOD UREA NITROGEN,BUN 15 mg/dL (7.0-18.0); CARBON DIOXIDE,CO2 15.3 mmol/L (21.0-32.0); CHLORIDE,CL 93 mmol/L (98-107); GLUCOSE RANDOM 77 mg/dL (74-106); POTASSIUM,K 4.5 mmol/L (3.5-5.1); SODIUM,NA 130 mmol/L (136-148)
--- NOTE | 2021-02-07 06:01 | CR ---
Indication: Vomiting blood Technique: Upright and supine views of the abdomen. Upright PA view of the chest. Comparison: None Findings: There are no abnormal distended air-filled small bowel loops. No bowel air-fluid levels are demonstrated on upright view. There is no free air under the diaphragm. Scattered air is noted in the colon. The visualized osseous structures are unremarkable. The lungs are clear. The cardiomediastinal silhouette is normal. There is no evidence of pleural effusion or pneumothorax. Impression: 1. Nonobstructive bowel gas pattern. No pneumoperitoneum. 2. No acute intrathoracic process. Dictated by Barrera Araujo MD @ Feb 07 2021 5:57AM Signed by Dr. Barrera Araujo @ Feb 07 2021 5:59AM
[2021-02-07 07:51] LABS: BLOOD UREA NITROGEN,BUN 14 mg/dL (7.0-18.0); CARBON DIOXIDE,CO2 11.9 mmol/L (21.0-32.0); CHLORIDE,CL 97 mmol/L (98-107); GLUCOSE RANDOM 66 mg/dL (74-106); POTASSIUM,K 4.8 mmol/L (3.5-5.1); SODIUM,NA 132 mmol/L (136-148)
[2021-02-07] MEDS ORDERED: Dextrose 5%-0.9% NaCl 1,000 ML IV SCH (08:15)
[2021-02-07] MEDS ORDERED: MVI, Adult with Vitamin K 10 ML, Thiamine 100 MG, Folic Acid 1 MG in Sodium Chloride 0.... IV ONE ×4 (08:18)
[2021-02-07] MEDS ORDERED: Midazolam 5 MG/ML SDV IVPUSH ONE ×2 (08:19→09:11)
[2021-02-07] MEDS ORDERED: Midazolam 1 MG/ML 2 ML SDV IVPUSH ONE ×2 (08:30→09:12)
[2021-02-07] MEDS ORDERED: Alum Hydrox/Mag Hydrox/Simeth 15 ML, Lidocaine 2% 5 ML PO ONE ×2 (08:53)
[2021-02-07] MEDS ORDERED: Acetaminophen 325 MG Tab PO PRN (10:02)
[2021-02-07] MEDS ORDERED: Enoxaparin 40 MG/0.4 ML Syringe SUBCUT SCH (10:30)
[2021-02-07] MEDS ORDERED: Albuterol/Ipratropium 3.0-0.5 MG/3 ML Neb Soln NEB PRN (10:30)
[2021-02-07] MEDS: Dextrose 5%-Lactated Ringers 1,000 ML IV SCH ×3 (10:57→23:50)
[2021-02-07] MEDS ORDERED: LORazepam 2 MG/ML SDV IVPUSH PRN (11:30)
[2021-02-07] MEDS: Diazepam 5 MG Tab PO SCH ×2 (12:05→20:12)
--- NOTE | 2021-02-07 12:10 | PCM.HP.2 ---
H&P History of Present Illness - General Date of Service: 02/07/21 Admit Problem/Dx: Admission Diagnosis/Problem Admission Diagnosis/Problem Ketoacidosis History Limitations: Reports: No Limitations - History of Present Illness Initial Comments - Free Text/Narative: This is a 31-year-old gentleman with a history significant hypertension, depression, alcohol use disorder who presents to the ER today secondary to suicidal ideation, he owns a gun and was going to have plans of killing himself with his gun earlier today. Patient states that he was sober for 140 days after he underwent rehab in [place], but 10 days ago he started drinking again as he could not control his craving. He specific trigger noted for relapse, Patient reports that he is extremely upset about his relapse, states he has been vomiting and has abdominal pain since last few days, his vomit had significant amount of blood in it. Denied any black stools or bloody stools. States he felt so miserable from his symptoms and wanted his misery to end so was thinking of killing himself. Patient denies any recent fevers, shakes, chills, dysuria, frequency, urgency. Patient denies any melena or bright red blood per rectum. Patient denies any chest discomfort. Patient denies any prior history of suicidal ideation or suicide attempts in the past. He feels like he is going into withdrawal now, states he has had seizure once due to alcohol withdrawal thats what prompted him to go to rehab. Patient denies any drug use.Patient denies any history of diabetes, liver, lung, kidney problems that he is aware of. Patient has no known drug allergies. In the ER Labs reveal a leukocytosis of 17.31 and a normal hemoglobin of 17.2. CMP revealed anion gap metabolic acidosis with bicarbonate 15.3 likely due to alcoholic ketoacidosis. Serum alcohol level was 157. Covid was negative. Repeat labs after IV fluids reveals worsening anion gap of 23 with metabolic acidosis of 11.9 which is decreased from prior, patients HR was was high in 130s, Patient was admitted for further care for medical management, he was more calm and cooperative and denied any active SI by that time. I performed a history and physical exam of the patient and discussed management with resident. I have reviewed the residents note and agree with documented findings and plan unless otherwise specified in my note.' abdomen Pain Score (Numeric/FACES): 5 - Related Data Allergies/Adverse Reactions: Allergies Allergy/AdvReac Type Severity Reaction Status Date / Time No Known Allergies Allergy Verified 02/07/21 11:02 Home Medications: Home Meds Propranolol [Inderal] 20 mg PO TID PRN 02/07/21 [History] QUEtiapine [SEROquel] 200 mg PO BEDTIME 02/07/21 [History] cloNIDine [Catapres] 0.1 mg PO BEDTIME 02/07/21 [History] Ondansetron [Zofran ODT] 4 mg PO Q6H PRN #10 tab.dis 02/08/21 [Rx] Propranolol [Inderal] 20 mg PO TID PRN #30 tablet 02/08/21 [Rx] Past Medical History - Past Health History Medical/Surgical History: Denies Medical/Surgical History HEENT History: Reports: None Cardiovascular History: Reports: Other (See Below) Other Cardiovascular History: palpitations related to alcohol abuse Respiratory History: Reports: None Gastrointestinal History: Reports: None Genitourinary History: Reports: None Musculoskeletal History: Reports: None Neurological History: Reports: None Psychiatric History: Reports: Anxiety, Depression, Suicidal Ideation Endocrine/Metabolic History: Reports: None Insulin Pump Model and Saw Repairer: None Hematologic History: Reports: None Immunologic History: Reports: None Oncologic (Cancer) History: Reports: None Dermatologic History: Reports: None - Infectious Disease History Infectious Disease History: Reports: Chicken Pox - Past Surgical History Head Surgeries/Procedures: Reports: None HEENT Surgical History: Reports: None Cardiovascular Surgical History: Reports: None Respiratory Surgical History: Reports: None GI Surgical History: Reports: Appendectomy, Hernia, Inguinal, Lysis of Adhesions Male Surgical History: Reports: None Endocrine Surgical History: Reports: None Neurological Surgical History: Reports: None Musculoskeletal Surgical History: Reports: None Oncologic Surgical History: Reports: None Dermatological Surgical History: Reports: None Social & Family History - Family History Family Medical History: No Pertinent Family History Psychiatric: Reports: Other (See Below) Other Psychiatric Family History: family hx of alcohol abuse - Caffeine Use Caffeine Use: Reports: Energy Drinks Caffeine Use Comment: 1 daily - Recreational Drug Use Recreational Drug Use: No H&P Review of Systems - Review of Systems: Review Of Systems: See Below General: Reports: Malaise, Weakness. Denies: Fever, Chills Pulmonary: Denies: Shortness of Breath, Wheezing Cardiovascular: Denies: Chest Pain, Palpitations Gastrointestinal: Reports: Abdominal Pain, Anorexia, Decreased Appetite, Hematemesis, Nausea, Vomiting. Denies: Black Stool, Bloody Stool, Constipation, Diarrhea Genitourinary: Denies: Dysuria, Frequency, Burning Musculoskeletal: Denies: Neck Pain, Shoulder Pain, Arm Pain Skin: Denies: Cyanosis, Jaundice, Mottled Psychiatric: Reports: Depression, Mood Lability, Anxiety, Cravings. Denies: Confusion, Suicidal Ideation Neurological: Denies: Confusion, Dizziness, Headache, Numbness Hematologic/Lymphatic: Denies: Anemia, Easy Bleeding, Easy Bruising Exam - Exam Exam: See Below - Vital Signs Vital Signs: Last Vital Signs Temp 37.2 C 02/07/21 09:43 Pulse 131 H 02/07/21 09:43 Resp 22 H 02/07/21 09:43 BP 132/84 02/07/21 09:43 Pulse Ox 97 02/07/21 09:43 Weight: 84.9 kg - Exam General: Alert, Oriented Neck: Supple Lungs: Clear to Auscultation, Normal Respiratory Effort Cardiovascular: Regular Rate, Regular Rhythm GI/Abdominal Exam: Normal Bowel Sounds, Soft, Non-Tender - Patient Data Lab Results Last 24 hrs: Laboratory Results - last 24 hr 02/07/21 02/07/21 02/07/21 Range/Units 04:45 04:55 04:55 WBC 17.31 H (4.0-11.0) K/uL RBC 5.59 (4.50-5.90) M/uL Hgb 17.2 H (13.0-17.0) g/dL Hct 48.7 (38.0-50.0) % MCV 87.1 (80.0-98.0) fL MCH 30.8 (27.0-32.0) pg MCHC 35.3 (31.0-37.0) g/dL RDW Std Deviation 37.9 (28.0-62.0) fl RDW Coeff of Sindy 12 (11.0-15.0) % Plt Count 274 (150-400) K/uL MPV 9.60 (7.40-12.00) fL Neut % (Auto) 83.1 H (48.0-80.0) % Lymph % (Auto) 12.5 L (16.0-40.0) % [place] % (Auto) 4.3 (0.0-15.0) % Eos % (Auto) 0.0 (0.0-7.0) % Baso % (Auto) 0.1 (0.0-1.5) % Neut # (Auto) 14.4 H (1.4-5.7) K/uL Lymph # (Auto) 2.2 (0.6-2.4) K/uL [place] # (Auto) 0.7 (0.0-0.8) K/uL Eos # (Auto) 0.0 (0.0-0.7) K/uL Baso # (Auto) 0.0 (0.0-0.1) K/uL Nucleated RBC % 0.0 /100WBC Nucleated RBCs # 0 K/uL INR APTT (18.6-31.3) SEC VBG pH (7.31-7.41) VBG pCO2 (35-45) mmHG VBG pO2 (30-40) mmHG VBG HCO3 (22-30) mEq/L VBG Total CO2 (41-51) mmol/L VBG Base Excess (-3.0-3.0) Sodium 130 L (136-148) mmol/L Potassium 4.5 (3.5-5.1) mmol/L Chloride 93 L (98-107) mmol/L Carbon Dioxide 15.3 L (21.0-32.0) mmol/L BUN 15 (7.0-18.0) mg/dL Creatinine 1.3 (0.8-1.3) mg/dL Est Cr Clr Drug Dosing 83.09 mL/min Estimated GFR (MDRD) > 60.0 ml/min Glucose 77 (74-106) mg/dL Calcium 8.2 L (8.5-10.1) mg/dL Magnesium 2.1 (1.8-2.4) mg/dL Total Bilirubin 0.8 (0.2-1.0) mg/dL AST 51 H (15-37) IU/L ALT 57 (14-63) IU/L Alkaline Phosphatase 99 (46-116) U/L Total Protein 8.5 H (6.4-8.2) g/dL Albumin 4.2 (3.4-5.0) g/dL Globulin 4.3 H (2.6-4.0) g/dL Albumin/Globulin Ratio 1.0 (0.9-1.6) Lipase (73-393) U/L TSH 3rd Generation 0.67 (0.36-3.74) uIU/mL Urine Color YELLOW Urine Appearance HAZY Urine pH 5.5 (5.0-8.0) Ur Specific [place] >= 1.030 (1.001-1.035) Urine Protein 100 H (NEGATIVE) mg/dL Urine Glucose (UA) NEGATIVE (NEGATIVE) mg/dL Urine Ketones >=80 (NEGATIVE) mg/dL Urine Occult Blood MODERATE H (NEGATIVE) Urine Nitrite NEGATIVE (NEGATIVE) Urine Bilirubin NEGATIVE (NEGATIVE) Urine Urobilinogen 0.2 (<2.0) EU/dL Ur Leukocyte Esterase NEGATIVE (NEGATIVE) U Hyaline Cast (Auto) 8-12 (0-2/LPF) Urine RBC 5-8 (0-2/HPF) Urine WBC 1-3 (0-5/HPF) Ur Epithelial Cells OCCASIONAL (NONE-FEW) Amorphous Sediment LIGHT (NEGATIVE) Urine Bacteria FEW (NEGATIVE) Urine Mucus MODERATE (NONE-MOD) Salicylates 1.7 (0-20) mg/dL Urine Opiates Screen (NEGATIVE) Ur Oxycodone Screen (NEGATIVE) Urine Methadone Screen (NEGATIVE) Acetaminophen <2.0 ug/mL Ur Barbiturates Screen (NEGATIVE) Ur Phencyclidine Scrn (NEGATIVE) Ur Amphetamine Screen (NEGATIVE) U Methamphetamines Scrn (NEGATIVE) U Benzodiazepines Scrn (NEGATIVE) U Cocaine Metab Screen (NEGATIVE) U Marijuana (THC) Screen (NEGATIVE) Ethyl Alcohol 157 mg/dL SARS-CoV-2 RNA (KOLE) (NEGATIVE) 02/07/21 02/07/21 02/07/21 Range/Units 04:55 04:55 05:00 WBC (4.0-11.0) K/uL RBC (4.50-5.90) M/uL Hgb (13.0-17.0) g/dL Hct (38.0-50.0) % MCV (80.0-98.0) fL MCH (27.0-32.0) pg MCHC (31.0-37.0) g/dL RDW Std Deviation (28.0-62.0) fl RDW Coeff of Sindy (11.0-15.0) % Plt Count (150-400) K/uL MPV (7.40-12.00) fL Neut % (Auto) (48.0-80.0) % Lymph % (Auto) (16.0-40.0) % [place] % (Auto) (0.0-15.0) % Eos % (Auto) (0.0-7.0) % Baso % (Auto) (0.0-1.5) % Neut # (Auto) (1.4-5.7) K/uL Lymph # (Auto) (0.6-2.4) K/uL [place] # (Auto) (0.0-0.8) K/uL Eos # (Auto) (0.0-0.7) K/uL Baso # (Auto) (0.0-0.1) K/uL Nucleated RBC % /100WBC Nucleated RBCs # K/uL INR 1.06 APTT 22.1 (18.6-31.3) SEC VBG pH (7.31-7.41) VBG pCO2 (35-45) mmHG VBG pO2 (30-40) mmHG VBG HCO3 (22-30) mEq/L VBG Total CO2 (41-51) mmol/L VBG Base Excess (-3.0-3.0) Sodium (136-148) mmol/L Potassium (3.5-5.1) mmol/L Chloride (98-107) mmol/L Carbon Dioxide (21.0-32.0) mmol/L BUN (7.0-18.0) mg/dL Creatinine (0.8-1.3) mg/dL Est Cr Clr Drug Dosing mL/min Estimated GFR (MDRD) ml/min Glucose (74-106) mg/dL Calcium (8.5-10.1) mg/dL Magnesium (1.8-2.4) mg/dL Total Bilirubin (0.2-1.0) mg/dL AST (15-37) IU/L ALT (14-63) IU/L Alkaline Phosphatase (46-116) U/L Total Protein (6.4-8.2) g/dL Albumin (3.4-5.0) g/dL Globulin (2.6-4.0) g/dL Albumin/Globulin Ratio (0.9-1.6) Lipase 98 (73-393) U/L TSH 3rd Generation (0.36-3.74) uIU/mL Urine Color Urine Appearance Urine pH (5.0-8.0) Ur Specific [place] (1.001-1.035) Urine Protein (NEGATIVE) mg/dL Urine Glucose (UA) (NEGATIVE) mg/dL Urine Ketones (NEGATIVE) mg/dL Urine Occult Blood (NEGATIVE) Urine Nitrite (NEGATIVE) Urine Bilirubin (NEGATIVE) Urine Urobilinogen (<2.0) EU/dL Ur Leukocyte Esterase (NEGATIVE) U Hyaline Cast (Auto) (0-2/LPF) Urine RBC (0-2/HPF) Urine WBC (0-5/HPF) Ur Epithelial Cells (NONE-FEW) Amorphous Sediment (NEGATIVE) Urine Bacteria (NEGATIVE) Urine Mucus (NONE-MOD) Salicylates (0-20) mg/dL Urine Opiates Screen (NEGATIVE) Ur Oxycodone Screen (NEGATIVE) Urine Methadone Screen (NEGATIVE) Acetaminophen ug/mL Ur Barbiturates Screen (NEGATIVE) Ur Phencyclidine Scrn (NEGATIVE) Ur Amphetamine Screen (NEGATIVE) U Methamphetamines Scrn (NEGATIVE) U Benzodiazepines Scrn (NEGATIVE) U Cocaine Metab Screen (NEGATIVE) U Marijuana (THC) Screen (NEGATIVE) Ethyl Alcohol mg/dL SARS-CoV-2 RNA (KOLE) NEGATIVE (NEGATIVE) 02/07/21 02/07/21 02/07/21 Range/Units 05:03 07:10 07:10 WBC 19.33 H (4.0-11.0) K/uL RBC 5.20 (4.50-5.90) M/uL Hgb 15.9 (13.0-17.0) g/dL Hct 45.7 (38.0-50.0) % MCV 87.9 (80.0-98.0) fL MCH 30.6 (27.0-32.0) pg MCHC 34.8 (31.0-37.0) g/dL RDW Std Deviation 37.8 (28.0-62.0) fl RDW Coeff of Sindy 12 (11.0-15.0) % Plt Count 225 (150-400) K/uL MPV 9.90 (7.40-12.00) fL Neut % (Auto) 86.2 H (48.0-80.0) % Lymph % (Auto) 8.4 L (16.0-40.0) % [place] % (Auto) 5.3 (0.0-15.0) % Eos % (Auto) 0.0 (0.0-7.0) % Baso % (Auto) 0.1 (0.0-1.5) % Neut # (Auto) 16.7 H (1.4-5.7) K/uL Lymph # (Auto) 1.6 (0.6-2.4) K/uL [place] # (Auto) 1.0 H (0.0-0.8) K/uL Eos # (Auto) 0.0 (0.0-0.7) K/uL Baso # (Auto) 0.0 (0.0-0.1) K/uL Nucleated RBC % 0.0 /100WBC Nucleated RBCs # 0 K/uL INR APTT (18.6-31.3) SEC VBG pH (7.31-7.41) VBG pCO2 (35-45) mmHG VBG pO2 (30-40) mmHG VBG HCO3 (22-30) mEq/L VBG Total CO2 (41-51) mmol/L VBG Base Excess (-3.0-3.0) Sodium 132 L (136-148) mmol/L Potassium 4.8 (3.5-5.1) mmol/L Chloride 97 L (98-107) mmol/L Carbon Dioxide 11.9 L (21.0-32.0) mmol/L BUN 14 (7.0-18.0) mg/dL Creatinine 1.1 (0.8-1.3) mg/dL Est Cr Clr Drug Dosing 98.19 mL/min Estimated GFR (MDRD) > 60.0 ml/min Glucose 66 L (74-106) mg/dL Calcium 7.0 L (8.5-10.1) mg/dL Magnesium (1.8-2.4) mg/dL Total Bilirubin 0.7 (0.2-1.0) mg/dL AST 44 H (15-37) IU/L ALT 48 (14-63) IU/L Alkaline Phosphatase 86 (46-116) U/L Total Protein 7.5 (6.4-8.2) g/dL Albumin 3.6 (3.4-5.0) g/dL Globulin 3.9 (2.6-4.0) g/dL Albumin/Globulin Ratio 0.9 (0.9-1.6) Lipase (73-393) U/L TSH 3rd Generation (0.36-3.74) uIU/mL Urine Color Urine Appearance Urine pH (5.0-8.0) Ur Specific [place] (1.001-1.035) Urine Protein (NEGATIVE) mg/dL Urine Glucose (UA) (NEGATIVE) mg/dL Urine Ketones (NEGATIVE) mg/dL Urine Occult Blood (NEGATIVE) Urine Nitrite (NEGATIVE) Urine Bilirubin (NEGATIVE) Urine Urobilinogen (<2.0) EU/dL Ur Leukocyte Esterase (NEGATIVE) U Hyaline Cast (Auto) (0-2/LPF) Urine RBC (0-2/HPF) Urine WBC (0-5/HPF) Ur Epithelial Cells (NONE-FEW) Amorphous Sediment (NEGATIVE) Urine Bacteria (NEGATIVE) Urine Mucus (NONE-MOD) Salicylates (0-20) mg/dL Urine Opiates Screen NEGATIVE (NEGATIVE) Ur Oxycodone Screen NEGATIVE (NEGATIVE) Urine Methadone Screen NEGATIVE (NEGATIVE) Acetaminophen ug/mL Ur Barbiturates Screen NEGATIVE (NEGATIVE) Ur Phencyclidine Scrn NEGATIVE (NEGATIVE) Ur Amphetamine Screen NEGATIVE (NEGATIVE) U Methamphetamines Scrn NEGATIVE (NEGATIVE) U Benzodiazepines Scrn NEGATIVE (NEGATIVE) U Cocaine Metab Screen NEGATIVE (NEGATIVE) U Marijuana (THC) Screen NEGATIVE (NEGATIVE) Ethyl Alcohol mg/dL SARS-CoV-2 RNA (KOLE) (NEGATIVE) 02/07/21 Range/Units 10:47 WBC (4.0-11.0) K/uL RBC (4.50-5.90) M/uL Hgb (13.0-17.0) g/dL Hct (38.0-50.0) % MCV (80.0-98.0) fL MCH (27.0-32.0) pg MCHC (31.0-37.0) g/dL RDW Std Deviation (28.0-62.0) fl RDW Coeff of Sindy (11.0-15.0) % Plt Count (150-400) K/uL MPV (7.40-12.00) fL Neut % (Auto) (48.0-80.0) % Lymph % (Auto) (16.0-40.0) % [place] % (Auto) (0.0-15.0) % Eos % (Auto) (0.0-7.0) % Baso % (Auto) (0.0-1.5) % Neut # (Auto) (1.4-5.7) K/uL Lymph # (Auto) (0.6-2.4) K/uL [place] # (Auto) (0.0-0.8) K/uL Eos # (Auto) (0.0-0.7) K/uL Baso # (Auto) (0.0-0.1) K/uL Nucleated RBC % /100WBC Nucleated RBCs # K/uL INR APTT (18.6-31.3) SEC VBG pH 7.26 L (7.31-7.41) VBG pCO2 31 L (35-45) mmHG VBG pO2 82 H (30-40) mmHG VBG HCO3 14 L (22-30) mEq/L VBG Total CO2 13 L (41-51) mmol/L VBG Base Excess -11.8 L (-3.0-3.0) Sodium (136-148) mmol/L Potassium (3.5-5.1) mmol/L Chloride (98-107) mmol/L Carbon Dioxide (21.0-32.0) mmol/L BUN (7.0-18.0) mg/dL Creatinine (0.8-1.3) mg/dL Est Cr Clr Drug Dosing mL/min Estimated GFR (MDRD) ml/min Glucose (74-106) mg/dL Calcium (8.5-10.1) mg/dL Magnesium (1.8-2.4) mg/dL Total Bilirubin (0.2-1.0) mg/dL AST (15-37) IU/L ALT (14-63) IU/L Alkaline Phosphatase (46-116) U/L Total Protein (6.4-8.2) g/dL Albumin (3.4-5.0) g/dL Globulin (2.6-4.0) g/dL Albumin/Globulin Ratio (0.9-1.6) Lipase (73-393) U/L TSH 3rd Generation (0.36-3.74) uIU/mL Urine Color Urine Appearance Urine pH (5.0-8.0) Ur Specific [place] (1.001-1.035) Urine Protein (NEGATIVE) mg/dL Urine Glucose (UA) (NEGATIVE) mg/dL Urine Ketones (NEGATIVE) mg/dL Urine Occult Blood (NEGATIVE) Urine Nitrite (NEGATIVE) Urine Bilirubin (NEGATIVE) Urine Urobilinogen (<2.0) EU/dL Ur Leukocyte Esterase (NEGATIVE) U Hyaline Cast (Auto) (0-2/LPF) Urine RBC (0-2/HPF) Urine WBC (0-5/HPF) Ur Epithelial Cells (NONE-FEW) Amorphous Sediment (NEGATIVE) Urine Bacteria (NEGATIVE) Urine Mucus (NONE-MOD) Salicylates (0-20) mg/dL Urine Opiates Screen (NEGATIVE) Ur Oxycodone Screen (NEGATIVE) Urine Methadone Screen (NEGATIVE) Acetaminophen ug/mL Ur Barbiturates Screen (NEGATIVE) Ur Phencyclidine Scrn (NEGATIVE) Ur Amphetamine Screen (NEGATIVE) U Methamphetamines Scrn (NEGATIVE) U Benzodiazepines Scrn (NEGATIVE) U Cocaine Metab Screen (NEGATIVE) U Marijuana (THC) Screen (NEGATIVE) Ethyl Alcohol mg/dL SARS-CoV-2 RNA (KOLE) (NEGATIVE) Result Diagrams: 02/08/21 05:24 02/08/21 05:24 Sepsis Event Note - Evaluation Sepsis Screening Result: No Definite Risk - Focused Exam Vital Signs: Vital Signs Temp Pulse Resp BP Pulse Ox 02/07/21 09:43 37.2 C 131 H 22 H 132/84 97 02/07/21 09:27 121 H 20 94 L 02/07/21 08:58 36.5 C 123 H 20 126/81 95 02/07/21 08:30 118 H 18 131/83 96 02/07/21 07:58 120 H 18 151/79 H 96 02/07/21 07:17 115 H 18 135/83 96 02/07/21 06:05 106 H 18 122/71 96 02/07/21 05:30 119 H 18 139/96 H 95 02/07/21 04:45 115 H 18 129/88 93 L 02/07/21 04:20 36.8 C 122 H 18 148/92 H 93 L - Problem List (1) Metabolic acidosis SNOMED Code(s): 76218859 ICD Code: E87.2 - ACIDOSIS Status: Acute (2) Alcohol abuse SNOMED Code(s): 02912120 ICD Code: F10.10 - ALCOHOL ABUSE, UNCOMPLICATED Status: Acute (3) Alcohol dependence with withdrawal SNOMED Code(s): 37614506, 581209151 ICD Code: F10.239 - ALCOHOL DEPENDENCE WITH WITHDRAWAL, UNSPECIFIED Status: Acute (4) Gastritis SNOMED Code(s): 1289992 ICD Code: K29.70 - GASTRITIS, UNSPECIFIED, WITHOUT BLEEDING Status: Acute (5) Suicidal ideation SNOMED Code(s): 7264023 ICD Code: R45.851 - SUICIDAL IDEATIONS Status: Acute Problem List Initiated/Reviewed/Updated: Yes Orders Last 24hrs: Active Orders 24 hr Category Date Time Status Admission Status [Patient Status] [ADT] Stat ADT 02/07/21 08:29 Active Ambulate [RC] ASDIRECTED Care 02/07/21 10:02 Active Antiembolic Devices [RC] PER UNIT ROUTINE Care 02/07/21 10:06 Active Communication Order [RC] STAT Care 02/07/21 04:57 Active EKG Documentation Completion [RC] STAT Care 02/07/21 04:45 Active Oxygen Therapy [RC] PRN Care 02/07/21 10:02 Active RT Aerosol Therapy [RC] ASDIRECTED Care 02/07/21 10:06 Active Telemetry Monitoring [Cardiac Monitoring] [RC] Q8H Care 02/07/21 10:38 Active VTE/DVT Education [RC] PER UNIT ROUTINE Care 02/07/21 10:02 Active Vital Signs [RC] Q4H Care 02/07/21 10:02 Active Clear Liquid Diet [DIET] Diet 02/07/21 Breakfast Active Acetaminophen [TylenoL] Med 02/07/21 10:02 Active 650 mg PO Q4H PRN Albuterol/Ipratropium [DuoNeb 3.0-0.5 MG/3 ML] Med 02/07/21 10:30 Active 3 ml NEB Q4HRRT PRN Dextrose 5%-0.9% NaCl [Dextrose 5%-Normal Saline] 1,000 Med 02/07/21 08:15 Active ml IV ASDIRECTED Dextrose 5%-Lactated Ringers 1,000 ml Med 02/07/21 10:30 Active IV ASDIRECTED Enoxaparin [Lovenox] Med 02/07/21 10:30 Active 40 mg SUBCUT Q24H LORazepam [Ativan] Med 02/07/21 11:30 Active 2 mg IVPUSH Q4H PRN diazePAM [Valium.] Med 02/07/21 11:30 Active 5 mg PO Q8H Sequential Compression Device [OM.PC] Per Unit Routine Oth 02/07/21 10:05 Ordered Resuscitation Status Routine Resus Stat 02/07/21 10:02 Ordered Medication Orders Acetaminophen (Acetaminophen 325 Mg Tab) 650 mg PO Q4H PRN PRN Reason: Pain (Mild 1-3)/fever Albuterol/Ipratropium (Albuterol/Ipratropium 3.0-0.5 Mg/3 Ml Neb Soln) 3 ml NEB Q4HRRT PRN PRN Reason: Shortness Of Breath/wheezing Diazepam (Diazepam 5 Mg Tab) 5 mg PO Q8H [facility] Last Admin: 02/07/21 12:05 Dose: 5 mg Documented by: FIDENCIO Enoxaparin Sodium (Enoxaparin 40 Mg/0.4 Ml Syringe) 40 mg SUBCUT Q24H [facility] Last Admin: 02/07/21 10:56 Dose: 40 mg Documented by: FIDENCIO Dextrose/Sodium Chloride (Dextrose 5%-Normal Saline) 1,000 mls @ 999 mls/hr IV ASDIRECTED [facility] Last Admin: 02/07/21 08:18 Dose: 999 mls/hr Documented by: JACKY Dextrose/Lactated Ringer's (Dextrose 5%-Lactated Ringers) 1,000 mls @ 150 mls/hr IV ASDIRECTED [facility] Last Admin: 02/07/21 10:57 Dose: 150 mls/hr Documented by: FIDENCIO Lorazepam (Lorazepam 2 Mg/Ml Sdv) 2 mg IVPUSH Q4H PRN; Protocol PRN Reason: Anxiety Assessment/Plan Comment:: 31 y/o M admitted for alcoholic acidosis and SI currently not actively suicidal start aggressive IV fluid hydration with D5LR serial BMP to monitor AG Hb is stable IV PPI BID IV Zofran CIWA protocol Ativan per CIWA Valium 5mg TID Suicide precautions cont neuropsychiatric meds Will consult Tele Psychiatry
[2021-02-07 13:31] LABS: BLOOD UREA NITROGEN,BUN 11 mg/dL (7.0-18.0); CARBON DIOXIDE,CO2 13.8 mmol/L (21.0-32.0); CHLORIDE,CL 99 mmol/L (98-107); GLUCOSE RANDOM 128 mg/dL (74-106); POTASSIUM,K 4.6 mmol/L (3.5-5.1); SODIUM,NA 131 mmol/L (136-148)
[2021-02-07] MEDS ORDERED: Ondansetron 4 MG/2 ML SDV IVPUSH PRN (14:04)
[2021-02-07] MEDS ORDERED: Calcium Gluconate 10% 1 GM/10 ML SDV IVPUSH ONE (14:07)
[2021-02-07 14:22] LABS: HEMOGLOBIN A1C 5.3 %
[2021-02-07] MEDS ORDERED: Propranolol 20 MG Tab PO PRN (14:26)
[2021-02-07] MEDS ORDERED: Lactated Ringers 1,000 ML IV ONE (14:30)
[2021-02-07] MEDS: Folic Acid 50 MG/10 ML MDV IV SCH (15:15)
[2021-02-07] MEDS: Ondansetron 4 MG/2 ML SDV IVPUSH PRN (15:16)
[2021-02-07] MEDS ORDERED: Thiamine 100 MG in Sodium Chloride 0.9% 100 ML IV SCH (15:30)
[2021-02-07] MEDS: Nicotine 14 MG/24 Hr Patch TRDERM SCH (17:08)
[2021-02-07 18:51] LABS: BLOOD UREA NITROGEN,BUN 9 mg/dL (7.0-18.0); CARBON DIOXIDE,CO2 22.5 mmol/L (21.0-32.0); CHLORIDE,CL 100 mmol/L (98-107); GLUCOSE RANDOM 108 mg/dL (74-106); POTASSIUM,K 3.8 mmol/L (3.5-5.1); SODIUM,NA 134 mmol/L (136-148)
[2021-02-07] MEDS: Pantoprazole 40 MG in Sodium Chloride 0.9% 10 ML IV SCH (20:12)
[2021-02-07] MEDS ORDERED: cloNIDine 0.1 MG Tab PO SCH (21:00)
[2021-02-07] MEDS ORDERED: QUEtiapine 100 MG Tab PO SCH (21:00)
[2021-02-07] MEDS ORDERED: traZODone 50 MG Tab PO SCH (21:00)
[2021-02-07 22:22] LABS: CHLORIDE,CL 102 mmol/L (98-107); GLUCOSE RANDOM 121 mg/dL (74-106); POTASSIUM,K 3.4 mmol/L (3.5-5.1); SODIUM,NA 136 mmol/L (136-148)
[2021-02-07 22:23] LABS: BLOOD UREA NITROGEN,BUN 9 mg/dL (7.0-18.0)
[2021-02-07 22:27] LABS: CARBON DIOXIDE,CO2 24.4 mmol/L (21.0-32.0)
--- NOTE | 2021-02-08 01:07 | CONS ---
DATE OF CONSULTATION: 02/07/2021 DATE OF : 1990 PRIMARY CARE PHYSICIAN: None PCP Site where the services are provided is [facility] in [place], [place]. Site where the services are provided is from our offices in [facility]. Length of service for this 60-minute inpatient telemedicine event is 60 minutes. IDENTIFICATION: The patient is a 31-year-old male who was admitted to the inpatient Med-Surg Unit at [facility] in [place], [place]. He is seen for psychiatric consultation per the request of staff attending, Dr. العلي and her treatment team. CHIEF COMPLAINT: "I was sober for like 114 days from drinking. 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 Evidently, the patient had been sober after going through a treatment in the latter part of 2019 down in [place]. He works on an [employer] up in the area. He had been up here, and about 10 days ago, he relapsed and started binge drinking. He states he was drinking on the order of "a gallon a day of vodka," and he states that he would get really depressed with the fact that he relapsed and staff is reporting that patient was presenting with a plan to shoot himself with a gun because he was feeling so depressed and guilty about his drinking. The patient states that he typically takes a combination of Seroquel, clonidine and Valium. "That works really well. Once I was just sober, I was doing great." He states that the combination of medications and sobriety was giving him a good quality of life. He states part of the reason that he relapsed is "I had insomnia for a while." He states at this point in time, he just wants to get better and he feels very badly about the relapse. Apparently, he came in with a BAL of 157. At this point in time, the patient is denying any suicidal or homicidal ideation. He states that he has "no thoughts whatsoever" of suicide and he is jeni for safety. Patient wants to get medically stabilized and discharged so he can go back down to [place] "so I can go through detox again and treatment." He states he was going to in the past and that really helped him. He states his parents are "flying up here now so that they can be with me." He is denying any suicidal or homicidal ideation. Denies any psychotic, delusional or paranoid symptoms. MEDICATIONS AT TIME OF ADMISSION: 1. Seroquel 200 mg at bedtime. 2. Clonidine at bedtime. 3. Propranolol 20 mg daily. ALLERGIES: No known drug allergies. PAST MEDICAL HISTORY: 1. Hypertension. 2. Alcoholic gastritis. 3. Alcoholic ketoacidosis. REVIEW OF SYSTEMS: Aside from cardiovascular, GI and metabolic, all other major organ systems are negative at this point in time for acute difficulties or complications. PAST PSYCHIATRIC AND CD HISTORY: The patient denies past psychiatric and CD history. The patient denies any previous psychiatric hospitalizations. He reports 1 CD treatment in the past at [facility] in [place]. Denies any previous suicide attempts, self-injurious behaviors or eating disorder history. PAST PSYCHIATRIC DIAGNOSES: Includes depression, bipolar, and alcoholism. He reports he has been on other medications for psychiatric issues, but this combination he is taking now has worked the best for him. He does not remember the other medications. SOCIAL HISTORY: Patient born and raised in [facility]. He is the 3rd of 6 siblings having 5 sisters. The patient's parents were throughout his childhood and adolescence. Father owns a real estate and david company. Mother is a homemaker. The patient's highest level education is 1 year of college. He works out in the [employer]. He has never been . Not involved in current relationships. Does not have any children. He lives with few other roommates in [place], [place]. He has been living there for a number of years and working out in the [employer]. He denies any prior service or any legal difficulty. He is Restorationism in terms of his atiya formation. He enjoys fishing, off loading and work in his spare time. MENTAL STATUS EXAM: The patient is a 31-year-old white male, in no apparent distress. Speech is of regular rate and rhythm. The patient is cognitively oriented x3. Psychomotor activity is within normal limits. There is no abnormal motor movements or tics observed. Gait is not observed. Station is not observed. This patient is in bed during the consult. Mood is remorseful. Affect is cooperative overall for the purposes of the inpatient consult. There is no behavioral or stated evidence of acute suicidal or homicidal ideation or acute psychotic, delusional or paranoid symptoms. Thought processes are organized at this point in time and there are no acute manic symptoms or loose associations evident. Judgment and insight appear unimpaired at this point in time. Motivation for help appears good. VITALS: 132/84, 130, 22, 98.6 degrees. IMPRESSION: [place] I: 1. Alcohol dependence, F10.20. 2. Bipolar affective disease, F31.60. 3. Generalized anxiety disorder, F41.1. [place] II: None. [place] III: 1. Hypertension. 2. Alcoholic gastritis. 3. Alcoholic ketoacidosis. [place] IV: Severe. [place] V: 60 to 65. PLAN: 1. Sobriety. 2. AA sobriety maintenance resource. 3. Restart Seroquel 200 mg at bedtime while patient is on the unit for clarity of thought, mood stability, sleep initiation and maintenance, anxiety reduction, elimination of any psychotic or paranoid symptoms. 4. Recommend Valium for withdrawal per the protocol p.r.n. 5. Folic acid supplementation. 6. Thiamine supplementation. 7. Primary treatment team may consider discontinuing one-to-one in a.m. if the patient is safe and without any adverse behaviors through the night. 8. I would recommend the patient be discharged back to community when he is medically stabilized as he does not appear to present a danger to himself or others at this point in time and therefore does not need transfer to inpatient Psychiatry. 9. The patient is informed that if he is unable to maintain sobriety on his own that he should definitely consider going back into treatment and he acknowledges understanding these facts. 10.Recommend the patient follows up with outpatient Psychiatry to assess his overall function and efficacy of his newly restarted and continued psychiatric medication regimen. 11.The patient is instructed to maintain good hydration status on the outside to help with full function throughout the day. 12.The patient is instructed to maintain medication compliance to help with full efficacy of his prescribed psychiatric medication regimen. 13.We will continue to follow up with patient on an as-needed basis while he remains on the inpatient Med-Surg Unit at [facility] in [place], [place]. 14.We will follow up with the patient sooner if any complications in the interim. 15.Crisis plan is in place. CHELLE / AGUSTÍN /[id number]
[2021-02-08] MEDS: Ondansetron 4 MG/2 ML SDV IVPUSH PRN (03:38)
[2021-02-08] MEDS: Diazepam 5 MG Tab PO SCH ×2 (03:42→11:05)
[2021-02-08 06:17] LABS: BLOOD UREA NITROGEN,BUN 7 mg/dL (7.0-18.0); CARBON DIOXIDE,CO2 26.5 mmol/L (21.0-32.0); CHLORIDE,CL 101 mmol/L (98-107); GLUCOSE RANDOM 139 mg/dL (74-106); POTASSIUM,K 3.3 mmol/L (3.5-5.1); SODIUM,NA 137 mmol/L (136-148)
[2021-02-08] MEDS: Dextrose 5%-Lactated Ringers 1,000 ML IV SCH (06:33)
[2021-02-08] MEDS ORDERED: Magnesium Oxide 400 MG Tab PO ONE (09:30)
[2021-02-08] MEDS ORDERED: Potassium Chloride 10% 20 MEQ/15 ML Soln 30 ML UD Cup PO ONE (09:30)
[2021-02-08] MEDS ORDERED: Phosphorus #1 250 MG Tab PO ONE (09:30)
[2021-02-08] MEDS: Folic Acid 50 MG/10 ML MDV IV SCH (10:10)
[2021-02-08] MEDS: Pantoprazole 40 MG in Sodium Chloride 0.9% 10 ML IV SCH (10:10)
[2021-02-08] MEDS: Nicotine 14 MG/24 Hr Patch TRDERM SCH (10:11)
--- NOTE | 2021-02-08 11:03 | PCM.DCSUM1 ---
Discharge Summary - Hospital Course Diagnosis: Stroke: No - Discharge Data Discharge Disposition: Home, Self-Care 01 Condition: Good - Referral to Home Health Primary Care Physician: PCP None - Discharge Diagnosis/Problem(s) (1) Metabolic acidosis SNOMED Code(s): 76241766 ICD Code: E87.2 - ACIDOSIS Status: Acute Current Visit: Yes (2) Alcohol abuse SNOMED Code(s): 17522315 ICD Code: F10.10 - ALCOHOL ABUSE, UNCOMPLICATED Status: Acute Current Visit: Yes (3) Alcohol dependence with withdrawal SNOMED Code(s): 70005365, 003762153 ICD Code: F10.239 - ALCOHOL DEPENDENCE WITH WITHDRAWAL, UNSPECIFIED Status: Acute Current Visit: Yes (4) Gastritis SNOMED Code(s): 5080433 ICD Code: K29.70 - GASTRITIS, UNSPECIFIED, WITHOUT BLEEDING Status: Acute Current Visit: Yes (5) Suicidal ideation SNOMED Code(s): 3915656 ICD Code: R45.851 - SUICIDAL IDEATIONS Status: Acute Current Visit: Yes - Patient Instructions Diet: Usual Diet as Tolerated Activity: As Tolerated Driving: Do Not Drive Showering/Bathing: May Shower Notify Provider of: Fever, Increased Pain, Swelling and Redness, Drainage, Nausea and/or Vomiting - Discharge Plan *PRESCRIPTION DRUG MONITORING PROGRAM REVIEWED*: No *COPY OF PRESCRIPTION DRUG MONITORING REPORT IN PATIENT JEVON: No Prescriptions/Med Rec: Propranolol [Inderal] 20 mg PO TID PRN #30 tablet PRN Reason: Anxiety Ondansetron [Zofran ODT] 4 mg PO Q6H PRN #10 tab.dis PRN Reason: Nausea Home Medications: Home Meds Propranolol [Inderal] 20 mg PO TID PRN 02/07/21 [History] QUEtiapine [SEROquel] 200 mg PO BEDTIME 02/07/21 [History] cloNIDine [Catapres] 0.1 mg PO BEDTIME 02/07/21 [History] Ondansetron [Zofran ODT] 4 mg PO Q6H PRN #10 tab.dis 02/08/21 [Rx] Propranolol [Inderal] 20 mg PO TID PRN #30 tablet 02/08/21 [Rx] Forms: ED Department Discharge Referrals: PCP,None [Primary Care Provider] - - Patient Data Vitals - Most Recent: Last Vital Signs Temp 36.3 C 02/08/21 07:05 Pulse 88 02/08/21 07:05 Resp 14 02/08/21 07:05 BP 129/79 02/08/21 07:05 Pulse Ox 96 02/08/21 07:05 Weight - Most Recent: 84.9 kg I&O - Last 24 hours: Intake & Output 02/07/21 02/08/21 02/08/21 22:59 06:59 14:59 Intake Total 3392 2750 Output Total 1800 2100 Balance 1592 650 Lab Results - Last 24 hrs: Laboratory Results - last 24 hr 02/07/21 02/07/21 02/07/21 Range/Units 04:55 10:47 18:06 WBC (4.0-11.0) K/uL RBC (4.50-5.90) M/uL Hgb (13.0-17.0) g/dL Hct (38.0-50.0) % MCV (80.0-98.0) fL MCH (27.0-32.0) pg MCHC (31.0-37.0) g/dL RDW Std Deviation (28.0-62.0) fl RDW Coeff of Sindy (11.0-15.0) % Plt Count (150-400) K/uL MPV (7.40-12.00) fL Neut % (Auto) (48.0-80.0) % Lymph % (Auto) (16.0-40.0) % [place] % (Auto) (0.0-15.0) % Eos % (Auto) (0.0-7.0) % Baso % (Auto) (0.0-1.5) % Neut # (Auto) (1.4-5.7) K/uL Lymph # (Auto) (0.6-2.4) K/uL [place] # (Auto) (0.0-0.8) K/uL Eos # (Auto) (0.0-0.7) K/uL Baso # (Auto) (0.0-0.1) K/uL Nucleated RBC % /100WBC Nucleated RBCs # K/uL Sodium 131 L 134 L (136-148) mmol/L Potassium 4.6 3.8 (3.5-5.1) mmol/L Chloride 99 100 (98-107) mmol/L Carbon Dioxide 13.8 L 22.5 (21.0-32.0) mmol/L BUN 11 9 (7.0-18.0) mg/dL Creatinine 1.0 1.1 (0.8-1.3) mg/dL Est Cr Clr Drug Dosing 108.01 98.19 mL/min Estimated GFR (MDRD) > 60.0 > 60.0 ml/min Glucose 128 H 108 H (74-106) mg/dL Hemoglobin A1c 5.3 (4.5 - 6.2) % Calcium 6.9 L 8.4 L (8.5-10.1) mg/dL Phosphorus (2.6-4.7) mg/dL Magnesium (1.8-2.4) mg/dL 02/07/21 02/08/21 02/08/21 Range/Units 22:00 05:24 05:24 WBC 7.22 (4.0-11.0) K/uL RBC 4.34 L (4.50-5.90) M/uL Hgb 13.1 (13.0-17.0) g/dL Hct 37.4 L (38.0-50.0) % MCV 86.2 (80.0-98.0) fL MCH 30.2 (27.0-32.0) pg MCHC 35.0 (31.0-37.0) g/dL RDW Std Deviation 36.8 (28.0-62.0) fl RDW Coeff of Sindy 12 (11.0-15.0) % Plt Count 127 L (150-400) K/uL MPV 9.80 (7.40-12.00) fL Neut % (Auto) 76.3 (48.0-80.0) % Lymph % (Auto) 15.9 L (16.0-40.0) % [place] % (Auto) 7.6 (0.0-15.0) % Eos % (Auto) 0.1 (0.0-7.0) % Baso % (Auto) 0.1 (0.0-1.5) % Neut # (Auto) 5.5 (1.4-5.7) K/uL Lymph # (Auto) 1.2 (0.6-2.4) K/uL [place] # (Auto) 0.6 (0.0-0.8) K/uL Eos # (Auto) 0.0 (0.0-0.7) K/uL Baso # (Auto) 0.0 (0.0-0.1) K/uL Nucleated RBC % 0.0 /100WBC Nucleated RBCs # 0 K/uL Sodium 136 137 (136-148) mmol/L Potassium 3.4 L 3.3 L (3.5-5.1) mmol/L Chloride 102 101 (98-107) mmol/L Carbon Dioxide 24.4 26.5 (21.0-32.0) mmol/L BUN 9 7 (7.0-18.0) mg/dL Creatinine 1.0 0.9 (0.8-1.3) mg/dL Est Cr Clr Drug Dosing 108.01 120.02 mL/min Estimated GFR (MDRD) > 60.0 > 60.0 ml/min Glucose 121 H 139 H (74-106) mg/dL Hemoglobin A1c (4.5 - 6.2) % Calcium 7.8 L 8.0 L (8.5-10.1) mg/dL Phosphorus 1.8 L (2.6-4.7) mg/dL Magnesium 1.8 (1.8-2.4) mg/dL Med Orders - Current: Current Medications Acetaminophen (Acetaminophen 325 Mg Tab) 650 mg PO Q4H PRN PRN Reason: Pain (Mild 1-3)/fever Last Admin: 02/07/21 12:12 Dose: 650 mg Documented by: Albuterol/Ipratropium (Albuterol/Ipratropium 3.0-0.5 Mg/3 Ml Neb Soln) 3 ml NEB Q4HRRT PRN PRN Reason: Shortness Of Breath/wheezing Clonidine HCl (Clonidine 0.1 Mg Tab) 0.1 mg PO BEDTIME KURT Diazepam (Diazepam 5 Mg Tab) 5 mg PO Q8H KURT Last Admin: 02/08/21 03:42 Dose: 5 mg Documented by: Folic Acid (Folic Acid 50 Mg/10 Ml Mdv) 1 mg IV DAILY KURT Last Admin: 02/08/21 10:10 Dose: 1 mg Documented by: Dextrose/Lactated Ringer's (Dextrose 5%-Lactated Ringers) 1,000 mls @ 150 mls/hr IV ASDIRECTED [facility] Last Admin: 02/08/21 06:33 Dose: 150 mls/hr Documented by: Pantoprazole Sodium 40 mg/ (Sodium Chloride) 10 mls @ 300 mls/hr IV BID [facility] Last Admin: 02/08/21 10:10 Dose: 300 mls/hr Documented by: Thiamine HCl 100 mg/ Sodium (Chloride) 101 mls @ 202 mls/hr IV Q24H [facility] Last Admin: 02/07/21 15:16 Dose: 202 mls/hr Documented by: Lorazepam (Lorazepam 2 Mg/Ml Sdv) 2 mg IVPUSH Q4H PRN; Protocol PRN Reason: Anxiety Last Admin: 02/07/21 18:26 Dose: 1 mg Documented by: Nicotine (Nicotine 14 Mg/24 Hr Patch) 14 mg TRDERM DAILY [facility] Last Admin: 02/08/21 10:11 Dose: 14 mg Documented by: Ondansetron HCl (Ondansetron 4 Mg/2 Ml Sdv) 4 mg IVPUSH Q4H PRN PRN Reason: Nausea/Vomiting Last Admin: 02/08/21 03:38 Dose: 4 mg Documented by: Ondansetron HCl (Ondansetron 4 Mg/2 Ml Sdv) 4 mg IVPUSH Q6H PRN PRN Reason: Nausea/Vomiting Propranolol HCl (Propranolol 20 Mg Tab) 20 mg PO TID PRN PRN Reason: Anxiety Quetiapine Fumarate (Quetiapine 100 Mg Tab) 200 mg PO BEDTIME [facility] Last Admin: 02/07/21 20:12 Dose: 200 mg Documented by: Discontinued Medications Clonidine HCl (Clonidine 0.1 Mg Tab) 0.1 mg PO BEDTIME [facility] Al Hydroxide/Mg Hydroxide 15 (ml/ Lidocaine HCl 5 ml) 0 ml PO ONETIME ONE Stop: 02/07/21 08:54 Last Admin: 02/07/21 09:04 Dose: 1 each Documented by: Enoxaparin Sodium (Enoxaparin 40 Mg/0.4 Ml Syringe) 40 mg SUBCUT Q24H [facility] Last Admin: 02/07/21 10:56 Dose: 40 mg Documented by: Sodium Chloride (Normal Saline) 1,000 mls @ 999 mls/hr IV .Bolus ONE Stop: 02/07/21 06:06 Last Admin: 02/07/21 05:33 Dose: 999 mls/hr Documented by: Pantoprazole Sodium 40 mg/ (Sodium Chloride) 10 mls @ 300 mls/hr IV NOW ONE Stop: 02/07/21 05:07 Last Admin: 02/07/21 05:34 Dose: 300 mls/hr Documented by: Sodium Chloride (Normal Saline) 1,000 mls @ 999 mls/hr IV .Bolus ONE Stop: 02/07/21 06:16 Last Admin: 02/07/21 05:33 Dose: 999 mls/hr Documented by: Dextrose/Sodium Chloride (Dextrose 5%-Normal Saline) 1,000 mls @ 999 mls/hr IV ASDIRECTED [facility] Last Admin: 02/07/21 08:18 Dose: 999 mls/hr Documented by: Multivitamins/Minerals 10 ml/Thiamine HCl 100 mg/ Folic Acid 1 mg/ Sodium Ch loride 1,011.2 mls @ 999 mls/hr IV ONETIME ONE Stop: 02/07/21 09:18 Last Admin: 02/07/21 08:36 Dose: 999 mls/hr Documented by: Lactated Ringer's (Ringers, Lactated) 1,000 mls @ 999 mls/hr IV .BOLUS ONE Stop: 02/07/21 15:30 Last Admin: 02/07/21 15:13 Dose: 999 mls/hr Documented by: Calcium Gluconate 1 gm/ Sodium (Chloride) 60 mls @ 60 mls/hr IV ONETIME ONE Stop: 02/07/21 15:29 Last Admin: 02/07/21 15:15 Dose: 60 mls/hr Documented by: Magnesium Oxide (Magnesium Oxide 400 Mg Tab) 800 mg PO ONETIME ONE Stop: 02/08/21 09:31 Last Admin: 02/08/21 10:09 Dose: 800 mg Documented by: Midazolam HCl (Midazolam 5 Mg/Ml Sdv) 5 mg IVPUSH ONETIME ONE Stop: 02/07/21 08:20 Last Admin: 02/07/21 08:26 Dose: Not Given Documented by: Midazolam HCl (Midazolam 1 Mg/Ml 2 Ml Sdv) 5 mg IVPUSH ONETIME ONE Stop: 02/07/21 08:31 Last Admin: 02/07/21 08:37 Dose: 5 mg Documented by: Midazolam HCl (Midazolam 5 Mg/Ml Sdv) 5 mg IVPUSH ONETIME ONE Stop: 02/07/21 09:12 Last Admin: 02/07/21 09:13 Dose: Not Given Documented by: Midazolam HCl (Midazolam 1 Mg/Ml 2 Ml Sdv) 5 mg IVPUSH ONETIME ONE Stop: 02/07/21 09:13 Last Admin: 02/07/21 09:19 Dose: 5 mg Documented by: Ondansetron HCl (Ondansetron 4 Mg/2 Ml Sdv) 4 mg IVPUSH ONETIME ONE Stop: 02/07/21 05:07 Last Admin: 02/07/21 05:34 Dose: 4 mg Documented by: Ondansetron HCl (Ondansetron 4 Mg/2 Ml Sdv) 4 mg IVPUSH ONETIME ONE Stop: 02/07/21 08:54 Last Admin: 02/07/21 09:04 Dose: 4 mg Documented by: Potassium Chloride (Potassium Chloride 10% 20 Meq/15 Ml Soln 30 Ml Ud Cup) 40 meq PO ONETIME ONE Stop: 02/08/21 09:31 Last Admin: 02/08/21 10:14 Dose: 40 meq Documented by: Sodium Phosphate (Phosphorus #1 250 Mg Tab) 500 mg PO ONETIME ONE Stop: 02/08/21 09:31 Last Admin: 02/08/21 10:10 Dose: 500 mg Documented by:
[2021-02-08 11:27] VITALS: BP 143/90; PULSE 93
[2021-02-08] MEDS ORDERED: cloNIDine 0.1 MG Tab PO SCH (21:00)
== END 2021-02-08 13:45 | disposition home or self-care (01) ==
LOC: MW.ED 04:07 → MW.MS 08:29
PROVIDERS: ADMIT Student in an Organized Health Care Education/Training Program; ATTEND Student in an Organized Health Care Education/Training Program
DX: R45.851 Suicidal ideations (principal); I10 Essential (primary) hypertension; E87.2 Acidosis; F10.239 Alcohol dependence with withdrawal, unspecified; K29.70 Gastritis, unspecified, without bleeding; F41.1 Generalized anxiety disorder; F31.60 Bipolar disorder, current episode mixed, unspecified; Z79.899 Other long term (current) drug therapy; Z20.822 Contact with and (suspected) exposure to COVID-19
CPT/HCPCS: 36415; 74022; 80048; 80053; 80143; 80179; 80305; 80307; 81001; 82803; 83036; 83690; 83735; 84100; 84443; 85025; 85610; 85730; 87635; 93005; 96365; 96375; 96376; 99285; A9270; C9113; J0610; J1650; J2060; J2250; J2405; J3411; J7030; J7042; J7120; J7121; 93010; 96367; 96372; 99284; G0378; U0002